=== PATIENT | female | born 1970 | race Caucasian/White ===

== ENCOUNTER 2016-07-23 14:11 | Inpatient (IN) | payer BC ==
[~2016-07-23] VITALS: Ht 172.7 cm; Wt 86.2 kg
--- NOTE | 2016-07-23 15:11 | Emergency Room Report ---
History of Present Illness General Chief Complaint: General Complaint Source: Patient Present Illness HPI Patient presents with pain in her groin and axillary area. She has hydradenitis. These lesions have been draining and bleeding on occasion. They' re fairly painful (3/10 - burning, constant) at this time but she hasn't taken any medication for them (aside from tumeric capsule this AM). She denies any fevers, chills, cough, sore throat, chest pain, nausea, vomiting , diarrhea. Her last period was normal for her and she is not . She's never had surgery in the past. She believes her tetanus is greater than 10 years however she is refusing a tetanus shot at this time. Allergies: Coded Allergies: No Known Allergies (Unverified , 07/23/16) Patient History Past Medical History: see triage record Social History: Denies: smoking Social History Narrative from [place] Last Menstrual Period: n/a hysterectomy Reviewed Nursing Documentation: PMH: Agreed, PSxH: Agreed Nursing Documentation-PMH Past Medical History: No History, Except For Review of Systems All Other Systems: negative except mentioned in HPI Physical Exam Vital Signs Date Time Temp Pulse Resp B/P Pulse Ox O2 Delivery O2 Flow Rate FiO2 07/23/16 14:34 98.2 60 16 122/72 Room Air Sp02 EP Interpretation: reviewed, normal General Appearance: well appearing, no apparent distress, GCS 15 Head: normocephalic Eyes: bilateral eye PERRL, bilateral eye normal inspection ENT: moist mucus membranes Neck: supple Respiratory: lungs clear, normal breath sounds Cardiovascular #1: regular rate, rhythm Cardiovascular #2: 2+ radial (R) Gastrointestinal: normal inspection, normal bowel sounds, non tender, no mass, non-distended Musculoskeletal: back normal, gait/station normal, normal range of motion Neurologic: alert, oriented x3, grossly normal Psychiatric: mood/affect normal Skin: warm/dry, other - Lesions L armpit and L groin - later with minimal drainage, some erythema Lymphatic: adenopathy - groin and axilla Medical Decision Making Diagnostic Impression: Primary Impression: Hydradenitis Additional Impression: Abscess ER Course Patient presents with painful lesions in the armpit and groin area. History of hidradenitis. Differential includes cellulitis, abscess he is an hidradenitis with exacerbation. Evaluation is undertaken with labs, EKG and chest x-ray as the patient needs surgical treatment at this time. The patient's declining analgesia at the moment although was offered and also refuses to have a tetanus shot. The patient is to be admitted to the hospital. Labs and EKG unremarkable. CXR clear. Still declines pain medicine. Admit med Dr. Wooten. Laboratory Tests Test 07/23/16 15:05 07/23/16 15:20 Urine Color Pale yellow Urine Appearance Clear Urine pH 6 (4.5-8.0) Urine Specific [place] 1.015 (1.005-1.035) Urine Protein Negative (NEGATIVE) Urine Glucose (UA) Negative (NEGATIVE) Urine Ketones Negative (NEGATIVE) Urine Occult Blood Negative (NEGATIVE) Urine Nitrite Negative (NEGATIVE) Urine Bilirubin Negative (NEGATIVE) Urine Urobilinogen Normal MG/DL (0.0-1.0) Urine Leukocyte Esterase Negative (NEGATIVE) Urine HCG, Qualitative Negative White Blood Count 8.6 K/UL (4.8-10.8) Red Blood Count 4.99 M/UL (4.20-5.40) Hemoglobin 15.0 G/DL (12.0-16.0) Hematocrit 44.0 % (37.0-47.0) Mean Corpuscular Volume 88 FL (80-99) Mean Corpuscular Hemoglobin 30.0 PG (27.0-31.0) Mean Corpuscular Hemoglobin Concent 34.0 G/DL (32.0-36.0) Red Cell Distribution Width 11.8 % (11.6-14.8) Platelet Count 294 K/UL (150-450) Mean Platelet Volume 6.6 FL (6.5-10.1) Neutrophils (%) (Auto) 40.6 % (45.0-75.0) L Lymphocytes (%) (Auto) 49.8 % (20.0-45.0) H Monocytes (%) (Auto) 6.7 % (1.0-10.0) Eosinophils (%) (Auto) 1.8 % (0.0-3.0) Basophils (%) (Auto) 1.1 % (0.0-2.0) Prothrombin Time 10.2 SEC (9.30-11.50) Prothrombin Time INR 1.0 (0.9-1.1) PTT 28 SEC (23-33) Sodium Level 141 mEQ/L (135-145) Potassium Level 4.0 mEQ/L (3.4-4.9) Chloride Level 100 mEQ/L (98-107) Carbon Dioxide Level 24 mEQ/L (20-30) Anion Gap 17 (5-15) H Blood Urea Nitrogen 16 mg/dL (7-23) Creatinine 1.0 mg/dL (0.5-0.9) H Estimate Glomerular Filtration Rate > 60 mL/min (>60) Glucose Level 99 mg/dL (74-106) Calcium Level 9.7 mg/dL (8.6-10.2) Total Bilirubin 0.4 mg/dL (0.0-1.2) Aspartate Amino Transferase (AST) 15 U/L (5-40) Alanine Aminotransferase (ALT) 15 U/L (3-33) Alkaline Phosphatase 79 U/L (35-104) Total Creatine Kinase 71 U/L (26-140) Total Protein 7.6 g/dL (6.6-8.7) Albumin 4.8 g/dL (3.5-5.2) Globulin 2.8 g/dL Albumin/Globulin Ratio 1.7 (1.0-2.7) EKG Diagnostic Results Rate: normal Rhythm: NSR ST Segments: no acute changes Rhythm Strip Diag. Results EP Interpretation: yes Rhythm: NSR, no PVC's, no ectopy Chest X-Ray Diagnostic Results EP Interpretation: Yes Findings: no consolidation, no effusion, no pneumothorax, no acute cardiopulmonary disease Number of Views: 1 Last Vital Signs Date Time Temp Pulse Resp B/P Pulse Ox O2 Delivery O2 Flow Rate FiO2 07/24/16 00:00 97.2 69 20 89/51 96 Room Air Status: improved Disposition: ADMITTED INPATIENT Condition: Serious Leroy Foss M.D. Jul 23, 2016 15:11
[2016-07-23 15:28] VITALS: BP 122/72
[2016-07-23 15:36] LABS: BASOPHILS % (AUTO) 1.1 % (0.0-2.0); EOSINOPHILS % (AUTO) 1.8 % (0.0-3.0); LYMPHOCYTES % (AUTO) 49.8 % (20.0-45.0); MEAN CORPUSCULAR VOLUME 88 FL (80-99); MEAN PLATELET VOLUME 6.6 FL (6.5-10.1); MONOCYTES % (AUTO) 6.7 % (1.0-10.0); NEUTROPHILS % (AUTO) 40.6 % (45.0-75.0); PLATELET COUNT 294 K/UL (150-450); RED BLOOD COUNT 4.99 M/UL (4.20-5.40); RED CELL DISTRIBUTION WIDTH 11.8 % (11.6-14.8); WHITE BLOOD COUNT 8.6 K/UL (4.8-10.8)
[2016-07-23 15:38] LABS: APPEARANCE,URINE CLEAR; KETONES,URINE NEGATIVE (NEGATIVE); LEUKOCYTE ESTERASE ,URINE NEGATIVE (NEGATIVE); NITRITE,URINE NEGATIVE (NEGATIVE); PH,URINE 6 (4.5-8.0); PROTEIN,URINE NEGATIVE (NEGATIVE); UROBILINOGEN,URINE NORMAL MG/DL (0.0-1.0)
[2016-07-23 15:52] LABS: PROTHROMBIN TIME 10.2 SEC (9.30-11.50)
[2016-07-23 15:56] LABS: ALANINE AMINOTRANSFERASE 15 U/L (3-33); ALBUMIN/GLOBULIN RATIO 1.7 (1.0-2.7); ANION GAP 17 (5-15); ASPARTATE AMINO TRANSFERASE 15 U/L (5-40); CALCIUM 9.7 mg/dL (8.6-10.2); CARBON DIOXIDE 24 mEQ/L (20-30); CHLORIDE 100 mEQ/L (98-107); GLOMERULAR FILTRATION RATE > 60 mL/min (>60); HEMOLYSIS 9; SODIUM 141 mEQ/L (135-145); TOTAL PROTEIN 7.6 g/dL (6.6-8.7)
--- NOTE | 2016-07-23 16:07 | Diagnostic Imaging Report ---
Indication: Chest pain Technique: One view of the chest Comparison: none Findings: Lungs and pleural spaces are clear. Heart size is normal. Impression: No acute process
--- NOTE | 2016-07-23 17:06 | History and Physical ---
History of Present Illness General Date patient seen: Jul 23, 2016 Time patient seen: 17:04 Reason for Hospitalization: General Complaint Present Illness HPI 46 yo F presents with pain in her groin and axillary area. She has a h/o hydradenitis. These lesions have been draining and bleeding on occasion. They are fairly painful. She denies any fevers, chills, cough, sore throat, chest pain, nausea, vomiting , diarrhea. Her last period was normal for her and she is not . She's never had surgery in the past. Allergies: Coded Allergies: No Known Allergies (Unverified , 07/23/16) Patient History Healthcare decision maker Resuscitation status Advanced Directive on File Past Medical/Surgical History Past Medical/Surgical History: (1) Hydradenitis Family History Family History: Patient reports no known family medical history. Social History Social History: (1) No significant social history Review of Systems All Other Systems: negative except mentioned in HPI Physical Exam General Appearance: no apparent distress, alert HEENT: normocephalic, atraumatic, anicteric, mucous membranes moist, PERRL, EOMI, pharynx normal, no JVD Neck: non-tender, supple Respiratory/Chest: lungs clear, normal breath sounds, no respiratory distress, no accessory muscle use Cardiovascular/Chest: normal peripheral pulses, normal rate, regular rhythm Abdomen: normal bowel sounds, non tender, soft, no mass Extremities: non-tender, normal inspection Skin Exam: warm/dry Neurologic: hand flesher II-XII grossly normal, no motor/sensory deficits, alert Musculoskeletal: normal muscle bulk Physical Exam Narrative General Appearance: well appearing, no apparent distress, GCS 15 Head: normocephalic Eyes: bilateral eye PERRL, bilateral eye normal inspection ENT: moist mucus membranes Neck: supple Respiratory: lungs clear, normal breath sounds Cardiovascular #1: regular rate, rhythm Cardiovascular #2: 2+ radial (R) Gastrointestinal: normal inspection, normal bowel sounds, non tender, no mass, non-distended Musculoskeletal: back normal, gait/station normal, normal range of motion Neurologic: alert, oriented x3, grossly normal Psychiatric: mood/affect normal Skin: warm/dry, other - Lesions L armpit and L groin - later with minimal drainage, some erythema Lymphatic: adenopathy - groin and axilla Last 24 Hour Vital Signs Date Time Temp Pulse Resp B/P Pulse Ox O2 Delivery O2 Flow Rate FiO2 07/23/16 15:28 98.2 75 16 122/72 98 Room Air 07/23/16 14:34 98.2 60 16 122/72 Room Air Laboratory Tests Test 07/23/16 15:05 07/23/16 15:20 Urine Color Pale yellow Urine Appearance Clear Urine pH 6 (4.5-8.0) Urine Specific [place] 1.015 (1.005-1.035) Urine Protein Negative (NEGATIVE) Urine Glucose (UA) Negative (NEGATIVE) Urine Ketones Negative (NEGATIVE) Urine Occult Blood Negative (NEGATIVE) Urine Nitrite Negative (NEGATIVE) Urine Bilirubin Negative (NEGATIVE) Urine Urobilinogen Normal MG/DL (0.0-1.0) Urine Leukocyte Esterase Negative (NEGATIVE) Urine HCG, Qualitative Negative White Blood Count 8.6 K/UL (4.8-10.8) Red Blood Count 4.99 M/UL (4.20-5.40) Hemoglobin 15.0 G/DL (12.0-16.0) Hematocrit 44.0 % (37.0-47.0) Mean Corpuscular Volume 88 FL (80-99) Mean Corpuscular Hemoglobin 30.0 PG (27.0-31.0) Mean Corpuscular Hemoglobin Concent 34.0 G/DL (32.0-36.0) Red Cell Distribution Width 11.8 % (11.6-14.8) Platelet Count 294 K/UL (150-450) Mean Platelet Volume 6.6 FL (6.5-10.1) Neutrophils (%) (Auto) 40.6 % (45.0-75.0) L Lymphocytes (%) (Auto) 49.8 % (20.0-45.0) H Monocytes (%) (Auto) 6.7 % (1.0-10.0) Eosinophils (%) (Auto) 1.8 % (0.0-3.0) Basophils (%) (Auto) 1.1 % (0.0-2.0) Prothrombin Time 10.2 SEC (9.30-11.50) Prothromb Time International Ratio 1.0 (0.9-1.1) Activated Partial Thromboplast Time 28 SEC (23-33) Sodium Level 141 mEQ/L (135-145) Potassium Level 4.0 mEQ/L (3.4-4.9) Chloride Level 100 mEQ/L (98-107) Carbon Dioxide Level 24 mEQ/L (20-30) Anion Gap 17 (5-15) H Blood Urea Nitrogen 16 mg/dL (7-23) Creatinine 1.0 mg/dL (0.5-0.9) H Estimat Glomerular Filtration Rate > 60 mL/min (>60) Glucose Level 99 mg/dL (74-106) Calcium Level 9.7 mg/dL (8.6-10.2) Total Bilirubin 0.4 mg/dL (0.0-1.2) Aspartate Amino Transf (AST/SGOT) 15 U/L (5-40) Alanine Aminotransferase (ALT/SGPT) 15 U/L (3-33) Alkaline Phosphatase 79 U/L (35-104) Total Creatine Kinase 71 U/L (26-140) Total Protein 7.6 g/dL (6.6-8.7) Albumin 4.8 g/dL (3.5-5.2) Globulin 2.8 g/dL Albumin/Globulin Ratio 1.7 (1.0-2.7) Height (Feet): 5 Height (Inches): 8.00 Weight (Pounds): 190 Medications Current Medications Medications (Trade) Dose Ordered Sig/[place] Route PRN Reason Start Time Stop Time Status Last Admin Dose Admin Sodium Chloride (Sodium Chloride 1000ml bag) 1,000 ml @ 150 mls/hr Q6H40M IV 07/23/16 14:45 08/22/16 14:44 07/23/16 15:25 Assessment/Plan Problem List: (1) Abscess ICD Codes: L02.91 - Cutaneous abscess, unspecified SNOMED: 398673514 (2) Hydradenitis ICD Codes: L73.2 - Hidradenitis suppurativa SNOMED: 68099822 Status: progressing Assessment/Plan - Admit to inpt - Pain control - Blood cx - Start IV abx -IVF - Supp care/wound care -c/s surgery, Dr. Bradshaw If patient is required to have surgery, based on the patient's medical history, and other available ancillary data, the patient is a LOW risk for an INTERMEDIATE risk procedure. Per the most recent ACC/AHA guidelines, the patient does not need any further cardiopulmonary testing prior to the procedure and there do not appear to be any clear medical contraindications to proceeding with the proposed procedure. DVT ppx: SCD Raf Vargas M.D. Jul 23, 2016 17:06
[2016-07-23 18:03] VITALS: BP 125/70
[2016-07-23 19:00] VITALS: BP 109/64
[2016-07-23] MEDS ORDERED: NKM (19:16)
[2016-07-23] MEDS: D5 1/2NS 1,000 ML IV SCH (20:00)
[2016-07-23] MEDS: ceFAZolin 1gm in D5W 55ml IVPB SCH (21:59)
[2016-07-23] MEDS ORDERED: ceFAZolin 1gm/50ml Premix 50 ML IVPB SCH (23:00)
[2016-07-24] VITALS (14 sets, daily range): BP systolic 89–151; BP diastolic 51–80
[2016-07-24] MEDS: ceFAZolin 1gm in D5W 55ml IVPB SCH (05:18)
[2016-07-24] MEDS: D5 1/2NS 1,000 ML IV SCH ×2 (08:27→22:40)
--- NOTE | 2016-07-24 11:48 | Pre-Procedure Note/Attestation ---
Pre-Procedure Note/Attestation Complete Prior to Procedure Planned Procedure: bilateral Procedure Narrative: Debridement of bilateral groins and left axilla with flap elevation Attestation I attest that I discussed the nature of the procedure; its benefits; risks and complications; and alternatives (and the risks and benefits of such alternatives ), prior to the procedure, with the patient (or the patient's legal site safety representative). I attest that, if there was a reasonable possibility of needing a blood transfusion, the patient (or the patient's legal site safety representative) was given the [facility] standardized written summary, pursuant to the John [place] Blood Safety Act ([place] Health and Safety Code # 1645, as amended). I attest that I re-evaluated the patient just prior to the surgery and that there has been no change in the patient's H&P, except as documented below: SOHA ELLIOTT Jul 24, 2016 11:48
--- NOTE | 2016-07-24 11:49 | Operative Note - PDOC ---
Operative Note Operative Note Pre-op Diagnosis: Bilateral groin abscess with left axillary infection Procedure: Debridement of bilateral groin and left axilla with flap elevation/ reconstruction Surgeon: Augustine Software Deployment Engineer: Sergio Anesthesia: general Specimen: yes Condition: stable Estimated Blood Loss: minimal Drains: DELICIA Implant(s) used?: No SOHA ELLIOTT Jul 24, 2016 11:49
[2016-07-24] MEDS ORDERED: DiphenhydrAMINE 50mg/ml Inj IVP PRN ×3 (12:00→16:00)
[2016-07-24] MEDS ORDERED: Zolpidem 5mg tab ORAL PRN (12:00)
[2016-07-24] MEDS ORDERED: Rate Change PCA 1 Each MISC PRN (12:00)
[2016-07-24] MEDS ORDERED: Propofol 10mg/ml 20ml IV ONE (12:36)
[2016-07-24] MEDS ORDERED: Bacitracin 50000 Units Vial ONE (12:36)
[2016-07-24] MEDS ORDERED: Lidocaine 1% 10mg/ml/Epi 0.005mg/ml 30ml vial INJ ONE (12:36)
[2016-07-24] MEDS ORDERED: NS Irrig 1000ml IRRIG ONE (12:50)
--- NOTE | 2016-07-24 12:57 | Consultation ---
DATE OF CONSULTATION: 07/24/2016 CONSULTING PHYSICIAN: Kelsey Bradshaw M.D. REASON FOR THE CONSULTATION: Bilateral groin pain and drainage. HISTORY OF PRESENT ILLNESS: This is a 46-year-old female, who presented to the emergency room for bilateral pain in her groins with drainage and tenderness. She was seen and admitted and started on IV antibiotics and was noted to have areas within her groin that were consistent with abscesses that needed to be addressed with both medical management as well surgical management. PAST MEDICAL HISTORY: Significant for hiatal hernia. PAST SURGICAL HISTORY: Includes a hysterectomy. PHYSICAL EXAMINATION: GENERAL: The patient is alert and oriented. HEART EXAM: Regular rhythm. ABDOMEN: Soft, nontender, and nondistended. CHEST: Examination of the chest reveals a mild area of hidradenitis in the left axilla. In the groin, there is as areas of multiple abscesses throughout the both groins extending from the upper to lower groin adjacent to the vulva on both sides. ASSESSMENT AND PLAN: This is a 46-year-old female admitted for bilateral groin abscesses. She will be taken to the operating room today for bilateral groin debridement with flap elevation. She will also undergo left axillary excision of hidradenitis with flap reconstruction. Kelsey Bradshaw M.D. DR: SHAHID JOB#: [id number] CC:
[2016-07-24] MEDS ORDERED: LR 1000ml 1,000 ML IVLG SCH (13:40)
--- NOTE | 2016-07-24 13:40 | Anethesia Preoperative Eval ---
Anesthesia Pre-op PMH/ROS General Date of Evaluation: Jul 24, 2016 Time of Evaluation: 12:38 Anesthesiologist: Jeb ASA Score: ASA 2 Mallampati Score Class I : Soft palate, uvula, fauces, pillars visible Class II: Soft palate, uvula, fauces visible Class III: Soft palate, base of uvula visible Class IV: Only hard plate visible Mallampati Classification: Class II Surgeon: Augustine Diagnosis: Bilateral groin and L axillary hydradenitis Surgical Procedure: Excision of hydradenitis Anesthesia History: none Social History: smoking - h/o Family History: no anesthesia problems Allergies: Coded Allergies: No Known Allergies (Unverified , 07/23/16) Past Medical History Cardiovascular: Denies: CAD, HTN, AR, arrhythmia, other, valve dz Pulmonary: Denies: COPD, MARIA ELENA, asthma, other Gastrointestinal/Genitourinary: Reports: GERD - mild, Denies: CRI, ESRD, other Neurologic/Psychiatric: Denies: CVA, TIA, dementia, depression/anxiety, other Endocrine: Denies: DM, hypothyroidism, other, steroids HEENT: Denies: RED DEVIL (L), [place] (R), cataract (L), cataract (R), glaucoma, other Musculoskeletal/Integumentary: Denies: DDD, DJD, OA, RA, edema, other Other: other - overweight PMH Narrative: as above PSxH Narrative: Hysterectomy Hip arthroscopy Anesthesia Pre-op Phys. Exam Physician Exam Last Vital Signs Date Time Temp Pulse Resp B/P Pulse Ox O2 Delivery O2 Flow Rate FiO2 07/24/16 05:24 97.5 62 20 101/67 99 Room Air Constitutional: NAD Neurologic: CN 2-12 intact Cardiovascular: RRR, no M/R/G Respiratory: CTA Gastrointestinal: S/NT/ND Airway Exam Mallampati Score: Class II MO: full Neck: flexible ROM: full Teeth: intact Dentures: no lower, no upper Anesthesia Pre-op A/P Labs Hematology Test 07/23/16 15:20 White Blood Count 8.6 K/UL (4.8-10.8) Red Blood Count 4.99 M/UL (4.20-5.40) Hemoglobin 15.0 G/DL (12.0-16.0) Hematocrit 44.0 % (37.0-47.0) Mean Corpuscular Volume 88 FL (80-99) Mean Corpuscular Hemoglobin 30.0 PG (27.0-31.0) Mean Corpuscular Hemoglobin Concent 34.0 G/DL (32.0-36.0) Red Cell Distribution Width 11.8 % (11.6-14.8) Platelet Count 294 K/UL (150-450) Mean Platelet Volume 6.6 FL (6.5-10.1) Neutrophils (%) (Auto) 40.6 % (45.0-75.0) L Lymphocytes (%) (Auto) 49.8 % (20.0-45.0) H Monocytes (%) (Auto) 6.7 % (1.0-10.0) Eosinophils (%) (Auto) 1.8 % (0.0-3.0) Basophils (%) (Auto) 1.1 % (0.0-2.0) Coagulation Test 07/23/16 15:20 Prothrombin Time 10.2 SEC (9.30-11.50) Prothromb Time International Ratio 1.0 (0.9-1.1) Activated Partial Thromboplast Time 28 SEC (23-33) Chemistry Test 07/23/16 15:20 Sodium Level 141 mEQ/L (135-145) Potassium Level 4.0 mEQ/L (3.4-4.9) Chloride Level 100 mEQ/L (98-107) Carbon Dioxide Level 24 mEQ/L (20-30) Anion Gap 17 (5-15) H Blood Urea Nitrogen 16 mg/dL (7-23) Creatinine 1.0 mg/dL (0.5-0.9) H Estimat Glomerular Filtration Rate > 60 mL/min (>60) Glucose Level 99 mg/dL (74-106) Calcium Level 9.7 mg/dL (8.6-10.2) Total Bilirubin 0.4 mg/dL (0.0-1.2) Aspartate Amino Transf (AST/SGOT) 15 U/L (5-40) Alanine Aminotransferase (ALT/SGPT) 15 U/L (3-33) Alkaline Phosphatase 79 U/L (35-104) Total Creatine Kinase 71 U/L (26-140) Total Protein 7.6 g/dL (6.6-8.7) Albumin 4.8 g/dL (3.5-5.2) Globulin 2.8 g/dL Albumin/Globulin Ratio 1.7 (1.0-2.7) Urine Test Test 07/23/16 15:05 Urine HCG, Qualitative Negative Studies Pre-op Studies: EKG - NSR Risk Assessment & Plan Assessment: ASA 2 Plan: GA with Ett PONV prevention Status Change Before Surgery: No Pre-Antibiotics Drug: Ancef 2gr. Given Within 1 Hr of Incision: Yes Time Given: 13:20 CHEL BORGES M.D. Jul 24, 2016 13:40
[2016-07-24] MEDS ORDERED: Meperidine 25mg/ml Inj IV PRN ×2 (13:45→16:00)
[2016-07-24] MEDS ORDERED: Midazolam 2mg/2ml Inj IVP PRN ×2 (13:45→16:00)
[2016-07-24] MEDS ORDERED: Metoclopramide 10mg/2ml Inj IVP PRN ×2 (13:45→16:00)
[2016-07-24] MEDS ORDERED: Ketorolac 30mg Inj IV PRN (13:45)
[2016-07-24] MEDS ORDERED: Hydromorphone 0.5mg/0.5ml inj IVP PRN ×2 (13:45→16:00)
[2016-07-24] MEDS ORDERED: ceFAZolin sod 1 GM in D5W 55 ML IVPB SCH (14:00)
--- NOTE | 2016-07-24 14:12 | General Progress Note ---
Assessment/Plan Problem List: (1) Abscess ICD Codes: L02.91 - Cutaneous abscess, unspecified SNOMED: [id number] (2) Hydradenitis ICD Codes: L73.2 - Hidradenitis suppurativa SNOMED: 09201424 Status: progressing Assessment/Plan - Admit to inpt med/surg - Pain control - Blood cx - IV abx -IVF - Supp care/wound care -c/s surgery, Dr. Bradshaw; pt to undergo b/l groin and L axilla debridement Subjective Date patient seen: Jul 24, 2016 Time patient seen: 14:12 Allergies: Coded Allergies: No Known Allergies (Unverified , 07/23/16) Subjective no acute events o/n Objective Last 24 Hour Vital Signs Date Time Temp Pulse Resp B/P Pulse Ox O2 Delivery O2 Flow Rate FiO2 07/24/16 05:24 97.5 62 20 101/67 99 Room Air 07/24/16 00:00 97.2 69 20 89/51 96 Room Air 07/23/16 19:00 97.9 70 20 109/64 96 Room Air 07/23/16 18:35 98.0 70 18 125/70 99 Room Air 07/23/16 18:03 98.0 70 18 125/70 99 Room Air 07/23/16 15:28 98.2 75 16 122/72 98 Room Air 07/23/16 14:34 98.2 60 16 122/72 Room Air Intake and Output 07/23/16 07/24/16 19:00 07:00 Intake Total 350 ml 120 ml Balance 350 ml 120 ml Intake Oral 120 ml IV Total 350 ml # Voids 1 6 Laboratory Tests 07/23/16 15:05: Urine Color Pale yellow, Urine Appearance Clear, Urine pH 6, Urine Specific [place] 1.015, Urine Protein Negative, Urine Glucose (UA) Negative, Urine Ketones Negative, Urine Occult Blood Negative, Urine Nitrite Negative, Urine Bilirubin Negative, Urine Urobilinogen Normal, Urine Leukocyte Esterase Negative , Urine HCG, Qualitative Negative 07/23/16 15:20: White Blood Count 8.6, Red Blood Count 4.99, Hemoglobin 15.0, Hematocrit 44.0, Mean Corpuscular Volume 88, Mean Corpuscular Hemoglobin 30.0, Mean Corpuscular Hemoglobin Concent 34.0, Red Cell Distribution Width 11.8, Platelet Count 294, Mean Platelet Volume 6.6, Neutrophils (%) (Auto) 40.6L, Lymphocytes (%) (Auto) 49.8H, Monocytes (%) (Auto) 6.7, Eosinophils (%) (Auto) 1.8, Basophils (%) (Auto ) 1.1, Prothrombin Time 10.2, Prothromb Time International Ratio 1.0, Activated Partial Thromboplast Time 28, Sodium Level 141, Potassium Level 4.0, Chloride Level 100, Carbon Dioxide Level 24, Anion Gap 17H, Blood Urea Nitrogen 16, Creatinine 1.0H, Estimat Glomerular Filtration Rate > 60, Glucose Level 99, Calcium Level 9.7, Total Bilirubin 0.4, Aspartate Amino Transf (AST/SGOT) 15, Alanine Aminotransferase (ALT/SGPT) 15, Alkaline Phosphatase 79, Total Creatine Kinase 71, Total Protein 7.6, Albumin 4.8, Globulin 2.8, Albumin/Globulin Ratio 1.7 Height (Feet): 5 Height (Inches): 8.00 Weight (Pounds): 190 Objective General Appearance: well appearing, no apparent distress Head: normocephalic Eyes: bilateral eye PERRL, bilateral eye normal inspection ENT: moist mucus membranes Neck: supple Respiratory: lungs clear, normal breath sounds Cardiovascular #1: regular rate, rhythm Cardiovascular #2: 2+ radial (R) Gastrointestinal: normal inspection, normal bowel sounds, non tender, no mass, non-distended Musculoskeletal: back normal, gait/station normal, normal range of motion Neurologic: alert, oriented x3, grossly normal Psychiatric: mood/affect normal Skin: warm/dry, other - Lesions L armpit and L groin - later with minimal drainage, some erythema Lymphatic: adenopathy - groin and axilla Raf Vargas M.D. Jul 24, 2016 14:12
--- NOTE | 2016-07-24 15:10 | Immediate Post-Op Evaluation ---
Immediate Post-Op Evalulation Immediate Post-Op Evalulation Procedure: Excision of bilateral groin and l axillary hydradenitis Date of Evaluation: Jul 24, 2016 Time of Evaluation: 15:08 IV Fluids: 1000 Blood Products: none Estimated Blood Loss: <50 Urinary Output: 250 Blood Pressure Systolic: 135 Blood Pressure Diastolic: 56 Pulse Rate: 72 Respiratory Rate: 20 O2 Sat by Pulse Oximetry: 99 Temperature (Fahrenheit): 97.6 Pain Score (1-10): 2 Nausea: No Vomiting: No Complications none Patient Status: reacts, patent, extubated, none Hydration Status: adequate CHEL BORGES M.D. Jul 24, 2016 15:10
--- NOTE | 2016-07-24 15:57 | 48 Hour Post Anesthesia Eval ---
Post Anesthesia Evaluation Procedure: Excision of bilateral groin and l axillary hydradenitis Date of Evaluation: Jul 24, 2016 Time of Evaluation: 15:56 Blood Pressure Systolic: 116 0: 58 Pulse Rate: 74 Respiratory Rate: 20 Temperature (Fahrenheit): 97.2 O2 Sat by Pulse Oximetry: 99 Airway: patent Nausea: No Vomiting: No Pain Intensity: 2 Hydration Status: adequate Cardiopulmonary Status: stable Mental Status/LOC: patient returned to baseline Follow-up Care/Observations: n/a Post-Anesthesia Complications: none Follow-up care needed: N/A CHEL BORGES M.D. Jul 24, 2016 15:57
[2016-07-24] MEDS: PCA HYDROmorphone 1mg/ml 30 ML IV PRN (16:23)
[2016-07-24] MEDS: PCA shift volume MISC SCH ×2 (18:30→23:00)
--- NOTE | 2016-07-24 20:47 | Operative Note - Dictated ---
DATE OF OPERATION: 07/24/2016 PREOPERATIVE DIAGNOSES: 1. Bilateral groin abscesses. 2. Left axillary infection. 3. Right thigh abscess. POSTOPERATIVE DIAGNOSES: 1. Bilateral groin abscesses. 2. Left axillary infection. 3. Right thigh abscess. PROCEDURE: 1. Left axillary debridement. 2. Elevation of a superior fasciocutaneous flap for closure of left axillary wound. 3. Elevation of an inferior fasciocutaneous flap for closure of left axillary wound. 4. Debridement of bilateral groin. 5. Debridement of right thigh abscess. 6. Elevation of a fasciocutaneous medial thigh flap for staged closure of right thigh wound. 7. Elevation of a fasciocutaneous groin flap for staged closure of right thigh wound. 8. Elevation of a fasciocutaneous medial thigh flap for staged closure of left groin wound. 9. Elevation of a fasciocutaneous groin flap for staged closure of left groin wound. SURGEON: Kelsey Bradshaw M.D. FACETOR: Maximus Hill M.D. ANESTHESIA: General. COMPLICATIONS: None. DRAINS: None. DISPOSITION: Stable to the recovery room. INDICATIONS FOR SURGERY: This is a 46-year-old female, admitted to the emergency room for bilateral groin abscesses. She was started on IV antibiotics, and on my evaluation of the patient, I felt that she would be appropriate candidate for debridement of her bilateral groins with stage reconstruction meaning that the flaps would not be closed at the time of the first surgery, given level of infection thought was that the patient would be on IV antibiotics and get some local wound care for two to three days before definitive closure of the wounds and regarding the left axillary area, she was a candidate for simultaneous excision and reconstruction, given the fact that the level of infection was quite low and would benefit from the debridement and irrigation intraoperatively. She understood the risks and benefits of surgery and agreed to proceed. DETAILS OF THE OPERATION: The patient was brought to the operating room and laid supine on the operating table. Her left axilla was first prepped and draped in a sterile and usual fashion. We began by using a marking pen to delineate the area of the disease and the corresponding fasciocutaneous flaps superiorly and inferiorly were designed to allow for definitive closure of the wounds . Wer began next with the use of a #15 blade to make a skin incision to excise the left axillary tissue all the way down to the axillary fascia. Once this was done, the superior inferior fasciocutaneous flaps that were designed were cut at the skin level using a #15 blade. We first elevated the inferior fasciocutaneous flap, which is based off of perforators of the intercostal arteries of the chest wall and the superior fasciocutaneous flap was then elevated at the fasciocutaneous level with perforators off of the axillary artery perfusing this flap. Once this was done, the wound was copiously irrigated and the flaps were brought together and inset using #0 and 2-0 Vicryl sutures and the skin was then closed with jose. We then turned our attention to the bilateral groin and thigh region. The patient was prepped and draped in the lithotomy position. Once the markings were made, we first began on the left side by using a #10 blade to make the skin incision elliptically to excise all the infected tissue all the way down to the level of the adductor fascia. Once this was done, we then turned our attention to the contralateral groin wound. In a similar fashion, an elliptical incision was made down to the fascia and there was also an upper thigh lesion on the left side, which was excised as well using a #10 blade to excise the abscess down to the level of the fascia. Once this was done, all the wounds were copiously irrigated with pulse lavage and we noted that even though the patient would not be amenable for definitive closure at this time and her wounds were not amenable to primary closure to begin with, given the size of the defect. As such, flaps had to be elevated to allow for staged closure. We first began the left side by elevating a medial fasciocutaneous thigh flap with proximal distal incision made to fully mobilize the flap and this was based off of branches of the superficial femoral artery. The corresponding and opposing groin fasciocutaneous flap was elevated based off of perforators of the superficial inferior epigastric artery and once this was done, proximal and distal incisions were made to fully mobilize this flap as well and following this, on the contralateral thigh, we elevated similar medial thigh fasciocutaneous flap with proximal and distal incisions made to also fully mobilize the flap and this was again based off of perforators of the superficial femoral artery and similarly a groin flap based off of the perforators of the superficial inferior epigastric artery and was also elevated at the fasciocutaneous level with proximal and distal incisions made also to fully mobilize the flap. Once these flaps were elevated and they were brought together and they were noted to be under no tension. However, given again the fact that the patient had infection present, these flaps were left in situ and will be brought together for definitive wound closure in three days. These wounds were then partially closed with jose and packing was placed. The patient tolerated the procedure well. There were no complications. Kelsey Bradshaw M.D. DR: FADY JOB#: [id number] CC: JAYANT
[2016-07-24] MEDS: ceFAZolin sod 1 GM in D5W 55 ML IVPB SCH (21:03)
[2016-07-24] MEDS: Heparin 5000 units/ml inj SUBQ SCH (21:05)
[2016-07-25 04:00] VITALS: BP 100/66
[2016-07-25] MEDS: ceFAZolin sod 1 GM in D5W 55 ML IVPB SCH ×3 (04:06→20:41)
[2016-07-25] MEDS: PCA shift volume MISC SCH ×3 (07:00→23:00)
[2016-07-25 08:00] VITALS: BP 106/64
[2016-07-25] MEDS: Metoclopramide 10mg/2ml Inj IVP PRN ×2 (08:05→15:01)
[2016-07-25] MEDS: Heparin 5000 units/ml inj SUBQ SCH ×2 (08:06→20:48)
--- NOTE | 2016-07-25 09:50 | General Progress Note ---
Progress Note Progress Note Pt seen and examined. POD # 1 and doing well. Dressings are dry and intact. Will take down dressings in AM in the groin and to OR on Wednesday for definitive groin wound closure. MD LEXI Fuentes AMIR Jul 25, 2016 09:50
[2016-07-25 12:00] VITALS: BP 106/68
[2016-07-25] MEDS ORDERED: NS Irrig 1000ml ONE (12:45)
[2016-07-25] MEDS ORDERED: Midazolam 2mg/2ml Inj ONE (12:45)
[2016-07-25] MEDS ORDERED: Glycopyrrolate 0.2mg/ml 1ml Vial ONE (12:45)
[2016-07-25] MEDS ORDERED: Ketorolac 30mg Inj ONE (12:45)
[2016-07-25] MEDS ORDERED: Zemuron 50mg/5ml Inj IV ONE (12:45)
[2016-07-25] MEDS ORDERED: Sterile Water Irrig 1000ml IRRIG ONE (12:45)
[2016-07-25] MEDS ORDERED: LR 1000ml ONE (12:45)
[2016-07-25] MEDS ORDERED: fentaNYL 250mcg/5ml ONE (12:45)
[2016-07-25] MEDS: D5 1/2NS 1,000 ML IV SCH (13:22)
[2016-07-25] MEDS ORDERED: D5 1/2NS 1000ml IV ONE (13:34)
[2016-07-25] MEDS ORDERED: Tubing IV Secondary IV ONE (13:34)
[2016-07-25 16:00] VITALS: BP 109/71
[2016-07-25] MEDS: PCA HYDROmorphone 1mg/ml 30 ML IV PRN (16:35)
[2016-07-26] VITALS: BP 123/77
[2016-07-26] MEDS: D5 1/2NS 1,000 ML IV SCH ×3 (01:36→19:58)
[2016-07-26 04:00] VITALS: BP 125/83
[2016-07-26] MEDS: ceFAZolin sod 1 GM in D5W 55 ML IVPB SCH ×3 (05:13→20:00)
[2016-07-26] MEDS: PCA shift volume MISC SCH ×3 (07:00→23:00)
[2016-07-26] MEDS: Heparin 5000 units/ml inj SUBQ SCH ×2 (08:22→21:00)
[2016-07-26 08:30] VITALS: BP 123/85
[2016-07-26] MEDS ORDERED: Norco 5mg/325mg tab ORAL PRN (10:45)
[2016-07-26] MEDS ORDERED: Rate Change PCA 1 Each MISC PRN (11:15)
[2016-07-26] MEDS ORDERED: PCA HYDROmorphone 1mg/ml 30 ML IV PRN (11:15)
--- NOTE | 2016-07-26 12:18 | General Progress Note ---
Assessment/Plan Problem List: (1) Abscess ICD Codes: L02.91 - Cutaneous abscess, unspecified SNOMED: 114307818 (2) Hydradenitis ICD Codes: L73.2 - Hidradenitis suppurativa SNOMED: 73190753 Assessment/Plan - Admit to inpt med/surg - Pain control; start norco since pt having n/v with dilaudid -zofran, compazine and reglan prn n/v - Blood cx - IV abx -IVF - Supp care/wound care -c/s surgery, Dr. Bradshaw; pt s/p b/l groin and L axilla debridement 07/24/16 Subjective Date patient seen: Jul 25, 2016 Time patient seen: 12:16 Allergies: Coded Allergies: No Known Allergies (Unverified , 07/23/16) Subjective +n/v; no f/c; avoiding taking pain med 2/2 n/v Objective Last 24 Hour Vital Signs Date Time Temp Pulse Resp B/P Pulse Ox O2 Delivery O2 Flow Rate FiO2 07/26/16 08:23 18 07/26/16 04:00 18 07/26/16 04:00 98.4 74 19 125/83 91 Room Air 07/26/16 00:00 98.1 70 20 123/77 95 Room Air 07/26/16 00:00 18 07/25/16 20:00 18 07/25/16 17:05 98.2 07/25/16 16:40 18 07/25/16 16:00 18 07/25/16 16:00 98.0 68 18 109/71 97 Room Air Intake and Output 07/25/16 07/26/16 19:00 07:00 Intake Total 360 ml 120 ml Output Total 400 ml 2700 ml Balance -40 ml -2580 ml Intake Oral 360 ml 120 ml Output Urine Total 400 ml 2700 ml Height (Feet): 5 Height (Inches): 8.00 Weight (Pounds): 190 Objective General Appearance: well appearing, no apparent distress Head: normocephalic Eyes: bilateral eye PERRL, bilateral eye normal inspection ENT: moist mucus membranes Neck: supple Respiratory: lungs clear, normal breath sounds Cardiovascular #1: regular rate, rhythm Cardiovascular #2: 2+ radial (R) Gastrointestinal: normal inspection, normal bowel sounds, non tender, no mass, non-distended Musculoskeletal: back normal, gait/station normal, normal range of motion Neurologic: alert, oriented x3, grossly normal Psychiatric: mood/affect normal Skin: warm/dry, other - Lesions L armpit and b/L groin - incision c/d/i Raf Vargas M.D. Jul 26, 2016 12:18
--- NOTE | 2016-07-26 12:19 | General Progress Note ---
Assessment/Plan Problem List: (1) Abscess ICD Codes: L02.91 - Cutaneous abscess, unspecified SNOMED: 885274991 (2) Hydradenitis ICD Codes: L73.2 - Hidradenitis suppurativa SNOMED: 98040005 Assessment/Plan - Admit to inpt med/surg - Pain control; start norco since pt having n/v with dilaudid -zofran, compazine and reglan prn n/v - Blood cx - IV abx -IVF - Supp care/wound care -c/s surgery, Dr. Bradshaw; pt s/p b/l groin and L axilla debridement 07/24/16 plan for wound closure tomorrow Subjective Date patient seen: Jul 26, 2016 Time patient seen: 12:18 Allergies: Coded Allergies: No Known Allergies (Unverified , 07/23/16) Subjective +n/v; no f/c; avoiding taking pain med 2/2 n/v Objective Last 24 Hour Vital Signs Date Time Temp Pulse Resp B/P Pulse Ox O2 Delivery O2 Flow Rate FiO2 07/26/16 08:23 18 07/26/16 04:00 18 07/26/16 04:00 98.4 74 19 125/83 91 Room Air 07/26/16 00:00 98.1 70 20 123/77 95 Room Air 07/26/16 00:00 18 07/25/16 20:00 18 07/25/16 17:05 98.2 07/25/16 16:40 18 07/25/16 16:00 18 07/25/16 16:00 98.0 68 18 109/71 97 Room Air Intake and Output 07/25/16 07/26/16 19:00 07:00 Intake Total 360 ml 120 ml Output Total 400 ml 2700 ml Balance -40 ml -2580 ml Intake Oral 360 ml 120 ml Output Urine Total 400 ml 2700 ml Height (Feet): 5 Height (Inches): 8.00 Weight (Pounds): 190 Objective General Appearance: well appearing, no apparent distress Head: normocephalic Eyes: bilateral eye PERRL, bilateral eye normal inspection ENT: moist mucus membranes Neck: supple Respiratory: lungs clear, normal breath sounds Cardiovascular #1: regular rate, rhythm Cardiovascular #2: 2+ radial (R) Gastrointestinal: normal inspection, normal bowel sounds, non tender, no mass, non-distended Musculoskeletal: back normal, gait/station normal, normal range of motion Neurologic: alert, oriented x3, grossly normal Psychiatric: mood/affect normal Skin: warm/dry, other - Lesions L armpit and b/L groin - incision c/d/i Raf Vargas M.D. Jul 26, 2016 12:19
[2016-07-26 12:30] VITALS: BP 131/78
[2016-07-26 16:11] VITALS: BP 127/73
[2016-07-26] MEDS: Metoclopramide 10mg/2ml Inj IVP PRN (16:50)
[2016-07-26 20:39] VITALS: BP 119/54
[2016-07-27] VITALS (16 sets, daily range): BP systolic 111–141; BP diastolic 62–87
[2016-07-27] MEDS: D5 1/2NS 1,000 ML IV SCH ×4 (00:49→19:16)
[2016-07-27] MEDS: ceFAZolin sod 1 GM in D5W 55 ML IVPB SCH ×3 (04:34→20:46)
[2016-07-27] MEDS: PCA shift volume MISC SCH ×2 (07:26→23:00)
[2016-07-27] MEDS: Heparin 5000 units/ml inj SUBQ SCH ×2 (09:00→20:47)
--- NOTE | 2016-07-27 11:07 | General Progress Note ---
Assessment/Plan Problem List: (1) Abscess ICD Codes: L02.91 - Cutaneous abscess, unspecified SNOMED: 574089643 (2) Hydradenitis ICD Codes: L73.2 - Hidradenitis suppurativa SNOMED: 42845969 Assessment/Plan - Admit to inpt med/surg - Pain control; start norco since pt having n/v with dilaudid - zofran, compazine and phenargan prn n/v--now controlled - Blood cx - IV abx - incresed rate of IVF - Supp care/wound care -c/s surgery, Dr. Bradshaw; pt s/p b/l groin and L axilla debridement 07/24/16 plan for wound closure today Subjective Date patient seen: Jul 27, 2016 Time patient seen: 11:05 Allergies: Coded Allergies: No Known Allergies (Unverified , 07/23/16) Subjective n/v improved; no f/c Objective Last 24 Hour Vital Signs Date Time Temp Pulse Resp B/P Pulse Ox O2 Delivery O2 Flow Rate FiO2 07/27/16 08:00 98.4 72 19 127/82 94 Room Air 07/27/16 08:00 18 07/27/16 04:00 98.1 67 18 120/76 97 Room Air 07/27/16 04:00 18 07/27/16 00:00 18 07/27/16 00:00 97.9 69 18 113/67 97 Room Air 07/26/16 20:39 98.2 62 18 119/54 95 Room Air 07/26/16 20:00 18 07/26/16 17:15 98.1 07/26/16 16:11 98.1 72 19 127/73 96 Room Air 07/26/16 16:00 18 07/26/16 12:30 97.0 78 20 131/78 95 Room Air 07/26/16 12:00 18 Intake and Output 07/26/16 07/27/16 19:00 07:00 Intake Total 930 ml 1855 ml Output Total 2000 ml 1650 ml Balance -1070 ml 205 ml Intake Oral 480 ml IV Total 450 ml 1855 ml Output Urine Total 2000 ml 1650 ml Height (Feet): 5 Height (Inches): 8.00 Weight (Pounds): 190 Objective General Appearance: well appearing, no apparent distress Head: normocephalic Eyes: bilateral eye PERRL, bilateral eye normal inspection ENT: moist mucus membranes Neck: supple Respiratory: lungs clear, normal breath sounds Cardiovascular #1: regular rate, rhythm Cardiovascular #2: 2+ radial (R) Gastrointestinal: normal inspection, normal bowel sounds, non tender, no mass, non-distended Musculoskeletal: back normal, gait/station normal, normal range of motion Neurologic: alert, oriented x3, grossly normal Psychiatric: mood/affect normal Skin: warm/dry, other - Lesions L armpit and b/L groin - incision c/d/i Raf Vargas M.D. Jul 27, 2016 11:07
[2016-07-27 11:12] LABS: BASOPHILS % (AUTO) 1.1 % (0.0-2.0); EOSINOPHILS % (AUTO) 0.8 % (0.0-3.0); LYMPHOCYTES % (AUTO) 41.6 % (20.0-45.0); MEAN CORPUSCULAR HEMOGLOBIN 30.4 PG (27.0-31.0); MEAN CORPUSCULAR HGB CONC 34.7 G/DL (32.0-36.0); MEAN CORPUSCULAR VOLUME 88 FL (80-99); MEAN PLATELET VOLUME 6.7 FL (6.5-10.1); MONOCYTES % (AUTO) 7.2 % (1.0-10.0); NEUTROPHILS % (AUTO) 49.4 % (45.0-75.0); PLATELET COUNT 232 K/UL (150-450); RED BLOOD COUNT 4.25 M/UL (4.20-5.40); RED CELL DISTRIBUTION WIDTH 11.2 % (11.6-14.8); WHITE BLOOD COUNT 7.5 K/UL (4.8-10.8)
[2016-07-27 11:26] LABS: INR 1.1 (0.9-1.1); PROTHROMBIN TIME 11.2 SEC (9.30-11.50)
[2016-07-27 11:30] LABS: ANION GAP 11 (5-15); CARBON DIOXIDE 25 mEQ/L (20-30); CHLORIDE 105 mEQ/L (98-107); CREATININE 0.8 mg/dL (0.5-0.9); GLOMERULAR FILTRATION RATE > 60 mL/min (>60); HEMOLYSIS 2; LIPASE 16 U/L (< 60); SODIUM 141 mEQ/L (135-145)
--- NOTE | 2016-07-27 12:48 | GI Initial Consult Note ---
History of Present Illness General Date patient seen: Jul 27, 2016 Time patient seen: 10:00 Reason for Hospitalization: General Complaint Referring physician: ZHANE BLACK Reason for Consultation: N/V Present Illness HPI Patient presents with pain in her groin and axillary area. She has hydradenitis. These lesions have been draining and bleeding on occasion. They' re fairly painful (3/10 - burning, constant) at this time but she hasn't taken any medication for them (aside from tumeric capsule this AM). She denies any fevers, chills, cough, sore throat, chest pain, nausea, vomiting , diarrhea. Her last period was normal for her and she is not . She's never had surgery in the past. She believes her tetanus is greater than 10 years however she is refusing a tetanus shot at this time. GI CONSULT: HPI as noted above. GI consulted for reports of N/V x 2 days. Denies any hematemesis or coffee grounds. Denies any diarrhea. Pt stated her N /V has resolved and she does not have any symptoms at this time. The patient was given multiple antiemetics during her episodes. Pt is s/p debridement of bilateral groin abscesses. DATE OF OPERATION: 07/24/2016 PREOPERATIVE DIAGNOSES: 1. Bilateral groin abscesses. 2. Left axillary infection. 3. Right thigh abscess. POSTOPERATIVE DIAGNOSES: 1. Bilateral groin abscesses. 2. Left axillary infection. 3. Right thigh abscess. PROCEDURE: 1. Left axillary debridement. 2. Elevation of a superior fasciocutaneous flap for closure of left axillary wound. 3. Elevation of an inferior fasciocutaneous flap for closure of left axillary wound. 4. Debridement of bilateral groin. 5. Debridement of right thigh abscess. 6. Elevation of a fasciocutaneous medial thigh flap for staged closure of right thigh wound. 7. Elevation of a fasciocutaneous groin flap for staged closure of right thigh wound. 8. Elevation of a fasciocutaneous medial thigh flap for staged closure of left groin wound. 9. Elevation of a fasciocutaneous groin flap for staged closure of left groin wound. Home Meds Reported Medications No Known Medications* (NKM - No Known Medications*) ., 0 ., 0 Refills 07/23/16 Med list reviewed/reconciled: Yes Allergies: Coded Allergies: No Known Allergies (Unverified , 1/26/17) Patient History History Provided By: Patient, Medical Record PMH Narrative Past Medical History: see triage record Social History: Denies: smoking Social History Narrative from [place] Last Menstrual Period: n/a hysterectomy Reviewed Nursing Documentation: PMH: Agreed, PSxH: Agreed Review of Systems All Other Systems: negative except mentioned in HPI Physical Exam Vital Signs Date Time Temp Pulse Resp B/P Pulse Ox O2 Delivery O2 Flow Rate FiO2 07/23/16 14:34 98.2 60 16 122/72 Room Air 07/23/16 15:28 98 07/24/16 14:59 6.0 Sp02 EP Interpretation: reviewed Labs Laboratory Tests Test 07/27/16 10:50 White Blood Count 7.5 K/UL (4.8-10.8) Red Blood Count 4.25 M/UL (4.20-5.40) Hemoglobin 12.9 G/DL (12.0-16.0) Hematocrit 37.2 % (37.0-47.0) Mean Corpuscular Volume 88 FL (80-99) Mean Corpuscular Hemoglobin 30.4 PG (27.0-31.0) Mean Corpuscular Hemoglobin Concent 34.7 G/DL (32.0-36.0) Red Cell Distribution Width 11.2 % (11.6-14.8) L Platelet Count 232 K/UL (150-450) Mean Platelet Volume 6.7 FL (6.5-10.1) Neutrophils (%) (Auto) 49.4 % (45.0-75.0) Lymphocytes (%) (Auto) 41.6 % (20.0-45.0) Monocytes (%) (Auto) 7.2 % (1.0-10.0) Eosinophils (%) (Auto) 0.8 % (0.0-3.0) Basophils (%) (Auto) 1.1 % (0.0-2.0) Prothrombin Time 11.2 SEC (9.30-11.50) Prothromb Time International Ratio 1.1 (0.9-1.1) Activated Partial Thromboplast Time 27 SEC (23-33) Sodium Level 141 mEQ/L (135-145) Potassium Level 4.0 mEQ/L (3.4-4.9) Chloride Level 105 mEQ/L (98-107) Carbon Dioxide Level 25 mEQ/L (20-30) Anion Gap 11 (5-15) Blood Urea Nitrogen 5 mg/dL (7-23) L Creatinine 0.8 mg/dL (0.5-0.9) Estimat Glomerular Filtration Rate > 60 mL/min (>60) Glucose Level 113 mg/dL (74-106) H Calcium Level 9.0 mg/dL (8.6-10.2) Lipase 16 U/L (< 60) General Appearance: well appearing, no apparent distress, alert Head: normocephalic EENT: normal ENT inspection Neck: full range of motion, supple Respiratory: normal breath sounds, no respiratory distress Cardiovascular: normal rate Gastrointestinal: normal inspection, non tender, soft, normal bowel sounds Rectal: deferred Musculoskeletal: normal inspection, back normal Neurologic: normal inspection, alert, oriented x3, responsive Psychiatric: normal inspection, judgement/insight normal, memory normal Skin: normal inspection, normal color, no rash, warm/dry Lymphatic: normal inspection, no adenopathy Current Medications Current Medications Medications (Trade) Dose Ordered Sig/[place] Route PRN Reason Start Time Stop Time Status Last Admin Dose Admin Acetaminophen (Tylenol) 650 mg Q4H PRN ORAL Mild Pain (Pain Scale 1-3) 07/23/16 17:00 08/22/16 16:59 Acetaminophen (Tylenol) 650 mg Q4H PRN ORAL fever 07/23/16 17:00 08/22/16 16:59 Acetaminophen/ Hydrocodone Bitart ([place] 5/325) 1 tab Q4H PRN ORAL Moderate Pain (Pain Scale 4-6) 07/26/16 10:45 08/02/16 10:44 Cefazolin Sodium/ Dextrose (Ancef/D5W) 55 ml @ 110 mls/hr Q8HR@0500,1300,2100 IVPB 07/24/16 21:00 07/31/16 20:59 07/27/16 04:34 Dextrose (Dextrose 50%) STAT PRN IV Hypoglycemia 07/23/16 17:00 08/22/16 16:59 Dextrose/Sodium Chloride (D5 0.45% NS) 1,000 ml @ 150 mls/hr Q6H40M IV 07/26/16 17:45 08/25/16 17:44 07/27/16 06:21 Diphenhydramine HCl 12.5 mg 12.5 mg Q6H PRN IVP Itching/Pruritis 07/24/16 12:00 08/23/16 11:59 Heparin Sodium (Porcine) (Heparin 5000 units/ml) 5,000 units EVERY 12 HOURS SUBQ 07/24/16 21:00 08/23/16 20:59 07/26/16 08:22 Hydromorphone HCl (Dilaudid) 2 mg Q4H PRN IVP Moderate Pain (Pain Scale 4-6) 07/26/16 11:15 07/28/16 11:14 Hydromorphone HCl (Dilaudid) 2 mg q3h PRN SUBQ Severe Pain (Pain Scale 7-10) 07/26/16 11:15 07/28/16 11:14 Hydromorphone HCl (LIVING [employer]ILLS ADVISOR Dilaudid) 30 ml @ 0 mls/hr Q24H PRN IV For Pain 07/26/16 11:15 07/28/16 11:14 07/26/16 16:41 Miscellaneous Medication (LIVING SKILLS ADVISOR Rate Change) 1 ea DAILY PRN MISC rate change 07/26/16 11:15 07/28/16 11:14 Miscellaneous Medication 1 ea 1 ea Q8HR@07,15,23 MISC 07/26/16 15:00 07/28/16 14:59 07/27/16 07:26 Ondansetron HCl (Zofran) 4 mg Q6H PRN IVP Nausea & Vomiting 07/24/16 12:00 08/23/16 11:59 07/26/16 12:32 Prochlorperazine 10 mg 10 mg Q6H PRN IVP Nausea & Vomiting 07/26/16 12:00 08/25/16 11:59 07/26/16 13:22 Promethazine HCl (Phenergan) 25 mg Q4H PRN IV MOTION SICKNESS 07/26/16 22:45 08/25/16 22:44 07/26/16 19:57 Zolpidem Tartrate (Ambien) 5 mg DAILYPRN PRN ORAL Insomnia 07/24/16 12:00 08/23/16 11:59 GI: Plan Problems: (1) Persistent vomiting Plan symptomatic treatment at this time Phenergan or compazine prn, consider low dose reglan if patient continues to have persistent vomiting lipase negative H2 abx fu labs Discussed with Dr. Lanza. Thank you for referring this patient, we will follow. Caron Long N.P. Jul 27, 2016 12:48
--- NOTE | 2016-07-27 13:47 | Pre-Procedure Note/Attestation ---
Pre-Procedure Note/Attestation Complete Prior to Procedure Planned Procedure: bilateral Procedure Narrative: Bilateral groin closure Indications for Procedure Pre-Operative Diagnosis: Bilateral groin abscess with left axillary infection Attestation I attest that I discussed the nature of the procedure; its benefits; risks and complications; and alternatives (and the risks and benefits of such alternatives ), prior to the procedure, with the patient (or the patient's legal customer counter representative). I attest that, if there was a reasonable possibility of needing a blood transfusion, the patient (or the patient's legal customer counter representative) was given the [facility] standardized written summary, pursuant to the John Ronald Blood Safety Act ([place] Health and Safety Code # 1645, as amended). I attest that I re-evaluated the patient just prior to the surgery and that there has been no change in the patient's H&P, except as documented below: SOHA ELLIOTT Jul 27, 2016 13:47
[2016-07-27] MEDS ORDERED: fentaNYL 250mcg/5ml ONE (14:00)
[2016-07-27] MEDS ORDERED: Dexamethasone 4mg/ml vial ONE (14:00)
[2016-07-27] MEDS ORDERED: LR 1000ml ONE (14:00)
[2016-07-27] MEDS ORDERED: Midazolam 2mg/2ml Inj ONE (14:00)
[2016-07-27] MEDS ORDERED: Metoclopramide 10mg/2ml Inj ONE (14:00)
[2016-07-27] MEDS ORDERED: Propofol 10mg/ml 20ml IV ONE (14:00)
[2016-07-27] MEDS ORDERED: Lidocaine 1% MPF 10mg/ml 5ml ONE (14:00)
[2016-07-27] MEDS ORDERED: NS Irrig 1000ml ONE (14:00)
[2016-07-27] MEDS ORDERED: Sterile Water Irrig 1000ml IRRIG ONE (14:00)
[2016-07-27] MEDS ORDERED: LR 1000ml 1,000 ML IVLG SCH (14:09)
--- NOTE | 2016-07-27 14:09 | Anethesia Preoperative Eval ---
Anesthesia Pre-op PMH/ROS General Date of Evaluation: Jul 27, 2016 Anesthesiologist: Israel ASA Score: ASA 2 Mallampati Score Class I : Soft palate, uvula, fauces, pillars visible Class II: Soft palate, uvula, fauces visible Class III: Soft palate, base of uvula visible Class IV: Only hard plate visible Mallampati Classification: Class II Surgeon: Augustine Diagnosis: Bilateral groin wounds Surgical Procedure: Bilateral groin woud closure Anesthesia History: none Family History: no anesthesia problems Allergies: Coded Allergies: No Known Allergies (Unverified , 07/23/16) Medications: see eMAR Past Medical History Cardiovascular: Denies: CAD, HTN, PR, arrhythmia, other, valve dz Pulmonary: Denies: COPD, MARIA ELENA, asthma, other Gastrointestinal/Genitourinary: Reports: GERD, Denies: CRI, ESRD, other Neurologic/Psychiatric: Denies: CVA, TIA, dementia, depression/anxiety, other Endocrine: Denies: DM, hypothyroidism, other, steroids HEENT: Denies: [place] (L), [place] (R), cataract (L), cataract (R), glaucoma, other Hematology/Immune: Denies: DVT, anemia, bleeding disorder, other Musculoskeletal/Integumentary: Reports: other - HS, Denies: DDD, DJD, OA, RA, edema Other: other - overweight PSxH Narrative: LAURA, hip arthroscopy, hiddradenitis suppurativa groin I&D Anesthesia Pre-op Phys. Exam Physician Exam Last Vital Signs Date Time Temp Pulse Resp B/P Pulse Ox O2 Delivery O2 Flow Rate FiO2 07/27/16 12:06 98.2 62 19 119/62 100 Room Air 07/24/16 19:00 3.0 Constitutional: NAD Cardiovascular: RRR Respiratory: CTA Airway Exam Mallampati Score: Class II MO: full ROM: full Teeth: intact Anesthesia Pre-op A/P Labs Hematology Test 07/27/16 10:50 White Blood Count 7.5 K/UL (4.8-10.8) Red Blood Count 4.25 M/UL (4.20-5.40) Hemoglobin 12.9 G/DL (12.0-16.0) Hematocrit 37.2 % (37.0-47.0) Mean Corpuscular Volume 88 FL (80-99) Mean Corpuscular Hemoglobin 30.4 PG (27.0-31.0) Mean Corpuscular Hemoglobin Concent 34.7 G/DL (32.0-36.0) Red Cell Distribution Width 11.2 % (11.6-14.8) L Platelet Count 232 K/UL (150-450) Mean Platelet Volume 6.7 FL (6.5-10.1) Neutrophils (%) (Auto) 49.4 % (45.0-75.0) Lymphocytes (%) (Auto) 41.6 % (20.0-45.0) Monocytes (%) (Auto) 7.2 % (1.0-10.0) Eosinophils (%) (Auto) 0.8 % (0.0-3.0) Basophils (%) (Auto) 1.1 % (0.0-2.0) Coagulation Test 07/27/16 10:50 Prothrombin Time 11.2 SEC (9.30-11.50) Prothromb Time International Ratio 1.1 (0.9-1.1) Activated Partial Thromboplast Time 27 SEC (23-33) Chemistry Test 07/27/16 10:50 Sodium Level 141 mEQ/L (135-145) Potassium Level 4.0 mEQ/L (3.4-4.9) Chloride Level 105 mEQ/L (98-107) Carbon Dioxide Level 25 mEQ/L (20-30) Anion Gap 11 (5-15) Blood Urea Nitrogen 5 mg/dL (7-23) L Creatinine 0.8 mg/dL (0.5-0.9) Estimat Glomerular Filtration Rate > 60 mL/min (>60) Glucose Level 113 mg/dL (74-106) H Calcium Level 9.0 mg/dL (8.6-10.2) Lipase 16 U/L (< 60) Studies Pre-op Studies: EKG - sr Risk Assessment & Plan Assessment: ASA II Plan: GA Status Change Before Surgery: No Pre-Antibiotics Drug: Ancef 2g Given Within 1 Hr of Incision: Yes Time Given: 14:20 TAQUERIA ROMO M.D. Jul 27, 2016 14:09
[2016-07-27] MEDS ORDERED: DiphenhydrAMINE 50mg/ml Inj IVP PRN (14:15)
[2016-07-27] MEDS ORDERED: Labetalol 5mg/ml 20ml vial IV PRN (14:15)
[2016-07-27] MEDS ORDERED: Hydromorphone 0.5mg/0.5ml inj IVP PRN (14:15)
[2016-07-27] MEDS ORDERED: NS Irrig 1000ml IRRIG ONE (14:15)
[2016-07-27] MEDS ORDERED: fentaNYL 100 mcg/2 mL IV PRN (14:15)
--- NOTE | 2016-07-27 14:17 | Operative Note - PDOC ---
Operative Note Operative Note Pre-op Diagnosis: Bilateral groin abscess with left axillary infection Procedure: Closure of bilateral groin wounds Surgeon: Augustine Pulmonary Fellow: Sergio Anesthesia: general Specimen: yes Condition: stable Estimated Blood Loss: minimal Drains: DELICIA Implant(s) used?: No SOHA ELLIOTT Jul 27, 2016 14:17
[2016-07-27] MEDS ORDERED: Zolpidem 5mg tab ORAL PRN (14:30)
[2016-07-27] MEDS ORDERED: Lidocaine 1% 10mg/ml/Epi 0.005mg/ml 30ml vial INJ ONE (14:32)
[2016-07-27] MEDS ORDERED: Bacitracin 50000 Units Vial ONE (15:28)
--- NOTE | 2016-07-27 15:30 | Immediate Post-Op Evaluation ---
Immediate Post-Op Evalulation Immediate Post-Op Evalulation Procedure: Excision of bilateral groin and l axillary hydradenitis Date of Evaluation: Jul 27, 2016 Time of Evaluation: 15:56 IV Fluids: 1L Blood Products: 0 Estimated Blood Loss: min Urinary Output: 100 Blood Pressure Systolic: 141 Blood Pressure Diastolic: 86 Pulse Rate: 85 Respiratory Rate: 17 O2 Sat by Pulse Oximetry: 99 Temperature (Fahrenheit): 97.1 Pain Score (1-10): 0 Nausea: No Vomiting: No Complications 0 Patient Status: awake, reacts, patent, none Hydration Status: adequate Drug: Ancef 2g Given Within 1 Hr of Incision: Yes Time Given: 14:20 TAQUERIA ROMO M.D. Jul 27, 2016 15:29
[2016-07-27] MEDS ORDERED: Rate Change PCA 1 Each MISC PRN (16:30)
[2016-07-27] MEDS: PCA HYDROmorphone 1mg/ml 30 ML IV PRN ×2 (16:35→17:48)
--- NOTE | 2016-07-27 19:07 | Cardiology Report ---
APPROVED REPORT EKG Measurement Heart [id number] Normal sinus rhythm Normal ECG
[2016-07-27] MEDS: Famotidine 20 MG/ 2ML VIAL IVP SCH (20:46)
[2016-07-27] MEDS ORDERED: Heparin 5000 units/ml inj SUBQ SCH (21:00)
--- NOTE | 2016-07-27 21:27 | Operative Note - Dictated ---
DATE OF OPERATION: 07/27/2016 PREOPERATIVE DIAGNOSIS: Bilateral open groin wound and open right thigh wound. POSTOPERATIVE DIAGNOSIS: Bilateral open groin wound and open right thigh wound. PROCEDURES: 1. Preparation of left groin wound for flap closure. 2. Preparation of right groin wound for flap closure. 3. Complex closure of right thigh wound. 4. Flap readvancement for closure of left groin wound. 5. Flap readvancement for closure of right groin wound. SURGEON: Kelsey Bradshaw M.D. PIANO CASE MAKER: Maximus Hill M.D. ANESTHESIA: General. COMPLICATIONS: None. DRAINS: Included one size 15 DELICIA in each groin wound. EBL: 25 mL. DISPOSITION: Stable to the recovery room. INDICATIONS FOR SURGERY: This is a 46-year-old female, who is three days postoperative from an excisional debridement of bilateral groin tissue, who has been undergoing dressing changes with IV antibiotics and her wound is not ready for definitive wound closure with flap advancement. The patient understands the risks and benefits of surgery and agrees to proceed. DETAILS OF THE OPERATION: The patient was brought to the operating room and laid supine on the operating room table and then after induction of anesthesia, she was placed in the lithotomy position. Her bilateral groins and lower abdomen and thighs were prepped and draped in a sterile usual fashion. We first began by debriding both open groin wounds with removal of some nonviable tissue using the electrocautery. Once this was done, despite the previous flap advancements, it was noted that the tissue tension was still significant if the current wound closure was pursued with flap advancement. As such, the previously raised flaps had to be readvanced, this was first done on the left side by re-elevating the flap previously raised fasciocutaneous medial thigh flap in the same plane level. Once this was done, we turned our attention to the contralateral right groin and in a similar fashion, the medial thigh flap that was previously elevated had to be readvanced and re-elevated to allow for a tension-free repair. Once this was done, the wound was copiously irrigated with pulse lavage on both sides and the flap was readvanced first on the left using #0 and 2-0 Vicryl sutures and 2-0 Prolene was used to close the skin and in a similar fashion, the contralateral groin wound was closed using #0 and 2-0 Vicryl sutures and with 2-0 Prolene to re-advance the medial thigh flap on that side. With both groin wounds closed, the right thigh wound was debrided as well and was closed using a complex closure technique of #0 Vicryl sutures with 2-0 Prolene for the skin. This thus completed definitive wound closure of the patient's bilateral groin and thigh wounds. She tolerated the procedure well. There were no complications. Kelsey Bradshaw M.D. DR: ITZEL JOB#: [id number] CC:
[2016-07-27] MEDS ORDERED: ceFAZolin sod 1 GM in D5W 55 ML IVPB SCH (22:00)
[2016-07-28] MEDS: D5 1/2NS 1,000 ML IV SCH ×4 (03:07→16:27)
[2016-07-28] MEDS: ceFAZolin sod 1 GM in D5W 55 ML IVPB SCH ×3 (05:26→20:54)
[2016-07-28 07:11] LABS: BASOPHILS % (AUTO) 0.6 % (0.0-2.0); LYMPHOCYTES % (AUTO) 32.7 % (20.0-45.0); MEAN CORPUSCULAR HEMOGLOBIN 31.6 PG (27.0-31.0); MEAN CORPUSCULAR HGB CONC 36.6 G/DL (32.0-36.0); MEAN CORPUSCULAR VOLUME 86 FL (80-99); MEAN PLATELET VOLUME 6.9 FL (6.5-10.1); MONOCYTES % (AUTO) 7.2 % (1.0-10.0); NEUTROPHILS % (AUTO) 59.5 % (45.0-75.0); PLATELET COUNT 221 K/UL (150-450); RED BLOOD COUNT 3.96 M/UL (4.20-5.40); RED CELL DISTRIBUTION WIDTH 11.1 % (11.6-14.8); WHITE BLOOD COUNT 9.2 K/UL (4.8-10.8)
[2016-07-28] MEDS: PCA shift volume MISC SCH ×3 (07:24→23:00)
[2016-07-28 07:44] LABS: ANION GAP 10 (5-15); CALCIUM 8.8 mg/dL (8.6-10.2); CARBON DIOXIDE 27 mEQ/L (20-30); CHLORIDE 104 mEQ/L (98-107); CREATININE 0.7 mg/dL (0.5-0.9); GLOMERULAR FILTRATION RATE > 60 mL/min (>60); HEMOLYSIS 3; POTASSIUM 4.6 mEQ/L (3.4-4.9); SODIUM 141 mEQ/L (135-145)
[2016-07-28] MEDS: Famotidine 20 MG/ 2ML VIAL IVP SCH ×2 (08:04→20:53)
[2016-07-28] MEDS: Heparin 5000 units/ml inj SUBQ SCH ×2 (08:12→20:55)
--- NOTE | 2016-07-28 10:30 | 48 Hour Post Anesthesia Eval ---
Post Anesthesia Evaluation Procedure: Excision of bilateral groin and l axillary hydradenitis Date of Evaluation: Jul 28, 2016 Time of Evaluation: 11:50 Blood Pressure Systolic: 111 0: 66 Pulse Rate: 93 Respiratory Rate: 18 Temperature (Fahrenheit): 97.2 O2 Sat by Pulse Oximetry: 94 Airway: patent Nausea: No Vomiting: No Pain Intensity: 2 If pain is > 6 Comment: Doing well with SUPERVISOR SAMPLE Hydration Status: adequate Cardiopulmonary Status: Stable Mental Status/LOC: patient returned to baseline Follow-up Care/Observations: As per surgery Post-Anesthesia Complications: No anesthetic complication Follow-up care needed: N/A JENIFFER YU M.D. Jul 28, 2016 10:30
--- NOTE | 2016-07-28 11:01 | General Progress Note ---
Progress Note Progress Note Pt seen and examined. POD# 4 and #1 doing well. Left axillary wound is looking good. Groin dressings in place. Will take down those dressings in 2 days. Soha Bradshaw. SOHA BROWNLEE Jul 28, 2016 11:01
--- NOTE | 2016-07-28 11:21 | GI Progress Note ---
Assessment/Plan Problems: (1) Abscess ICD Codes: L02.91 - Cutaneous abscess, unspecified SNOMED: 980814240 (2) Persistent vomiting ICD Codes: R11.10 - Vomiting, unspecified SNOMED: 020083310 (3) Hydradenitis ICD Codes: L73.2 - Hidradenitis suppurativa SNOMED: 01958009 Status: stable Status Narrative Discussed with Dr. Lanza. Assessment/Plan symptomatic treatment at this time Phenergan or compazine prn, consider low dose reglan if patient continues to have persistent vomiting lipase negative H2 abx fu labs Subjective Subjective denies any N/V Objective Last 24 Hour Vital Signs Date Time Temp Pulse Resp B/P Pulse Ox O2 Delivery O2 Flow Rate FiO2 07/28/16 10:30 93 18 94 07/28/16 08:00 18 07/28/16 04:00 18 07/28/16 00:00 18 07/27/16 20:00 18 07/27/16 20:00 97.2 93 19 111/66 94 Room Air 07/27/16 18:00 99.7 71 16 115/72 94 Room Air 07/27/16 17:30 18 07/27/16 17:20 97.0 61 15 120/79 96 Nasal Cannula 3.0 07/27/16 17:15 62 14 118/78 96 Nasal Cannula 3.0 07/27/16 17:15 14 07/27/16 17:05 97.0 07/27/16 17:00 16 07/27/16 17:00 64 16 126/79 98 Nasal Cannula 3.0 07/27/16 16:45 63 18 123/78 97 Nasal Cannula 3.0 07/27/16 16:40 62 15 123/80 97 Nasal Cannula 3.0 07/27/16 16:40 15 07/27/16 16:35 15 07/27/16 16:30 66 15 134/87 98 Nasal Cannula 3.0 07/27/16 16:15 71 14 138/87 100 Nasal Cannula 3.0 07/27/16 16:00 70 16 139/83 99 Simple Mask 8.0 07/27/16 15:55 78 20 139/83 99 Simple Mask 8.0 07/27/16 15:54 85 17 99 07/27/16 15:50 97.1 77 20 141/86 97 Simple Mask 8.0 07/27/16 12:06 98.2 62 19 119/62 100 Room Air 07/27/16 12:00 18 Intake and Output 07/27/16 07/28/16 19:00 07:00 Intake Total 1100 ml 975 ml Output Total 1450 ml 2465 ml Balance -350 ml -1490 ml Intake Oral 620 ml IV Total 1100 ml 355 ml Output Urine Total 1450 ml 2450 ml Drainage Total 15 ml Laboratory Tests Test 07/28/16 06:35 White Blood Count 9.2 K/UL (4.8-10.8) Red Blood Count 3.96 M/UL (4.20-5.40) L Hemoglobin 12.5 G/DL (12.0-16.0) Hematocrit 34.2 % (37.0-47.0) L Mean Corpuscular Volume 86 FL (80-99) Mean Corpuscular Hemoglobin 31.6 PG (27.0-31.0) H Mean Corpuscular Hemoglobin Concent 36.6 G/DL (32.0-36.0) H Red Cell Distribution Width 11.1 % (11.6-14.8) L Platelet Count 221 K/UL (150-450) Mean Platelet Volume 6.9 FL (6.5-10.1) Neutrophils (%) (Auto) 59.5 % (45.0-75.0) Lymphocytes (%) (Auto) 32.7 % (20.0-45.0) Monocytes (%) (Auto) 7.2 % (1.0-10.0) Eosinophils (%) (Auto) 0.0 % (0.0-3.0) Basophils (%) (Auto) 0.6 % (0.0-2.0) Sodium Level 141 mEQ/L (135-145) Potassium Level 4.6 mEQ/L (3.4-4.9) Chloride Level 104 mEQ/L (98-107) Carbon Dioxide Level 27 mEQ/L (20-30) Anion Gap 10 (5-15) Blood Urea Nitrogen 5 mg/dL (7-23) L Creatinine 0.7 mg/dL (0.5-0.9) Estimat Glomerular Filtration Rate > 60 mL/min (>60) Glucose Level 130 mg/dL (74-106) H Calcium Level 8.8 mg/dL (8.6-10.2) Height (Feet): 5 Height (Inches): 8.00 Weight (Pounds): 190 General Appearance: no apparent distress, alert Cardiovascular: normal rate Respiratory/Chest: normal breath sounds, no respiratory distress Abdominal Exam: normal bowel sounds, non tender, soft Caron Long N.P. Jul 28, 2016 11:21
[2016-07-28 12:00] VITALS: BP 106/68
--- NOTE | 2016-07-28 14:12 | General Progress Note ---
Assessment/Plan Problem List: (1) Abscess ICD Codes: L02.91 - Cutaneous abscess, unspecified SNOMED: 383573744 (2) Hydradenitis ICD Codes: L73.2 - Hidradenitis suppurativa SNOMED: 41199545 Assessment/Plan - Admit to inpt med/surg - Pain control; start norco since pt having n/v with dilaudid - zofran, compazine and phenargan prn n/v--now controlled - Blood cx - IV abx - incresed rate of IVF - Supp care/wound care -c/s surgery, Dr. Bradshaw; pt s/p b/l groin and L axilla debridement 07/24/16 -s/p wound closure 07/27/16 Dispo: dc home wednesday Subjective Date patient seen: Jul 28, 2016 Time patient seen: 14:11 Allergies: Coded Allergies: No Known Allergies (Unverified , 07/23/16) Subjective n/v improved; tolerating diet and pain meds Objective Last 24 Hour Vital Signs Date Time Temp Pulse Resp B/P Pulse Ox O2 Delivery O2 Flow Rate FiO2 07/28/16 12:00 18 07/28/16 12:00 97.6 60 18 106/68 98 Room Air 07/28/16 10:30 93 18 94 07/28/16 08:00 18 07/28/16 04:00 18 07/28/16 00:00 18 07/27/16 20:00 18 07/27/16 20:00 97.2 93 19 111/66 94 Room Air 07/27/16 18:00 99.7 71 16 115/72 94 Room Air 07/27/16 17:30 18 07/27/16 17:20 97.0 61 15 120/79 96 Nasal Cannula 3.0 07/27/16 17:15 62 14 118/78 96 Nasal Cannula 3.0 07/27/16 17:15 14 07/27/16 17:05 97.0 07/27/16 17:00 16 07/27/16 17:00 64 16 126/79 98 Nasal Cannula 3.0 07/27/16 16:45 63 18 123/78 97 Nasal Cannula 3.0 07/27/16 16:40 62 15 123/80 97 Nasal Cannula 3.0 07/27/16 16:40 15 07/27/16 16:35 15 07/27/16 16:30 66 15 134/87 98 Nasal Cannula 3.0 07/27/16 16:15 71 14 138/87 100 Nasal Cannula 3.0 07/27/16 16:00 70 16 139/83 99 Simple Mask 8.0 07/27/16 15:55 78 20 139/83 99 Simple Mask 8.0 07/27/16 15:54 85 17 99 07/27/16 15:50 97.1 77 20 141/86 97 Simple Mask 8.0 Intake and Output 07/27/16 07/28/16 19:00 07:00 Intake Total 1100 ml 975 ml Output Total 1450 ml 2465 ml Balance -350 ml -1490 ml Intake Oral 620 ml IV Total 1100 ml 355 ml Output Urine Total 1450 ml 2450 ml Drainage Total 15 ml Laboratory Tests 07/28/16 06:35: White Blood Count 9.2, Red Blood Count 3.96L, Hemoglobin 12.5, Hematocrit 34.2L , Mean Corpuscular Volume 86, Mean Corpuscular Hemoglobin 31.6H, Mean Corpuscular Hemoglobin Concent 36.6H, Red Cell Distribution Width 11.1L, Platelet Count 221, Mean Platelet Volume 6.9, Neutrophils (%) (Auto) 59.5, Lymphocytes (%) (Auto) 32.7, Monocytes (%) (Auto) 7.2, Eosinophils (%) (Auto) 0.0, Basophils (%) (Auto) 0.6, Sodium Level 141, Potassium Level 4.6, Chloride Level 104, Carbon Dioxide Level 27, Anion Gap 10, Blood Urea Nitrogen 5L, Creatinine 0.7, Estimat Glomerular Filtration Rate > 60, Glucose Level 130H, Calcium Level 8.8 Height (Feet): 5 Height (Inches): 8.00 Weight (Pounds): 190 Objective General Appearance: well appearing, no apparent distress Head: normocephalic Eyes: bilateral eye PERRL, bilateral eye normal inspection ENT: moist mucus membranes Neck: supple Respiratory: lungs clear, normal breath sounds Cardiovascular #1: regular rate, rhythm Cardiovascular #2: 2+ radial (R) Gastrointestinal: normal inspection, normal bowel sounds, non tender, no mass, non-distended Musculoskeletal: back normal, gait/station normal, normal range of motion Neurologic: alert, oriented x3, grossly normal Psychiatric: mood/affect normal Skin: warm/dry, other - Lesions L armpit and b/L groin - incision c/d/i Raf Vargas M.D. Jul 28, 2016 14:12
[2016-07-28 16:00] VITALS: BP 103/64
[2016-07-28] MEDS: PCA HYDROmorphone 1mg/ml 30 ML IV PRN (16:29)
[2016-07-28 20:00] VITALS: BP 111/67
[2016-07-28] MEDS: DiphenhydrAMINE 50mg/ml Inj IVP PRN (22:16)
[2016-07-29] VITALS (8 sets, daily range): BP systolic 95–115; BP diastolic 48–74
[2016-07-29] MEDS: ceFAZolin sod 1 GM in D5W 55 ML IVPB SCH ×3 (05:00→21:22)
[2016-07-29] MEDS: D5 1/2NS 1,000 ML IV SCH ×2 (06:00→11:16)
[2016-07-29] MEDS: PCA shift volume MISC SCH ×3 (07:00→23:00)
[2016-07-29 07:43] LABS: BASOPHILS % (AUTO) 1.3 % (0.0-2.0); EOSINOPHILS % (AUTO) 1.4 % (0.0-3.0); LYMPHOCYTES % (AUTO) 49.1 % (20.0-45.0); MEAN CORPUSCULAR HEMOGLOBIN 31.3 PG (27.0-31.0); MEAN CORPUSCULAR HGB CONC 35.7 G/DL (32.0-36.0); MEAN CORPUSCULAR VOLUME 88 FL (80-99); MEAN PLATELET VOLUME 6.9 FL (6.5-10.1); MONOCYTES % (AUTO) 6.4 % (1.0-10.0); NEUTROPHILS % (AUTO) 41.7 % (45.0-75.0); PLATELET COUNT 231 K/UL (150-450); RED BLOOD COUNT 3.78 M/UL (4.20-5.40); RED CELL DISTRIBUTION WIDTH 11.2 % (11.6-14.8); WHITE BLOOD COUNT 9.8 K/UL (4.8-10.8)
[2016-07-29 07:59] LABS: ANION GAP 11 (5-15); CALCIUM 8.5 mg/dL (8.6-10.2); CARBON DIOXIDE 27 mEQ/L (20-30); CHLORIDE 100 mEQ/L (98-107); CREATININE 0.9 mg/dL (0.5-0.9); GLOMERULAR FILTRATION RATE > 60 mL/min (>60); HEMOLYSIS 1; POTASSIUM 4.1 mEQ/L (3.4-4.9); SODIUM 138 mEQ/L (135-145)
[2016-07-29] MEDS: Famotidine 20 MG/ 2ML VIAL IVP SCH ×2 (08:11→21:22)
[2016-07-29] MEDS: Heparin 5000 units/ml inj SUBQ SCH ×2 (08:18→21:23)
--- NOTE | 2016-07-29 10:50 | GI Progress Note ---
Assessment/Plan Problems: (1) Abscess ICD Codes: L02.91 - Cutaneous abscess, unspecified SNOMED: 474145063 (2) Persistent vomiting ICD Codes: R11.10 - Vomiting, unspecified SNOMED: 498817633 (3) Hydradenitis ICD Codes: L73.2 - Hidradenitis suppurativa SNOMED: 36078750 Status: stable Status Narrative Discussed with Dr. Lanza. Assessment/Plan ok for DC per GI standpoint symptomatic treatment at this time Phenergan or compazine prn, consider low dose reglan if patient continues to have persistent vomiting lipase negative H2 abx fu labs Subjective Subjective denies any N/V Objective Last 24 Hour Vital Signs Date Time Temp Pulse Resp B/P Pulse Ox O2 Delivery O2 Flow Rate FiO2 07/29/16 08:00 98.8 75 20 111/64 92 Room Air 07/29/16 08:00 19 07/29/16 04:00 19 07/29/16 00:00 18 07/29/16 00:00 98.1 73 18 115/74 92 Room Air 07/28/16 20:00 97.7 70 18 111/67 93 Room Air 07/28/16 20:00 18 07/28/16 16:59 97.6 07/28/16 16:41 18 07/28/16 16:00 97.7 65 20 103/64 97 Room Air 07/28/16 16:00 18 07/28/16 12:00 18 07/28/16 12:00 97.6 60 18 106/68 98 Room Air Intake and Output 07/28/16 07/29/16 19:00 07:00 Intake Total 1200 ml 1342.5 ml Output Total 1250 ml 1954 ml Balance -50 ml -611.5 ml Intake Oral 1200 ml 800 ml IV Total 542.5 ml Output Urine Total 1250 ml 1900 ml Drainage Total 54 ml Laboratory Tests Test 07/29/16 06:05 White Blood Count 9.8 K/UL (4.8-10.8) Red Blood Count 3.78 M/UL (4.20-5.40) L Hemoglobin 11.8 G/DL (12.0-16.0) L Hematocrit 33.1 % (37.0-47.0) L Mean Corpuscular Volume 88 FL (80-99) Mean Corpuscular Hemoglobin 31.3 PG (27.0-31.0) H Mean Corpuscular Hemoglobin Concent 35.7 G/DL (32.0-36.0) Red Cell Distribution Width 11.2 % (11.6-14.8) L Platelet Count 231 K/UL (150-450) Mean Platelet Volume 6.9 FL (6.5-10.1) Neutrophils (%) (Auto) 41.7 % (45.0-75.0) L Lymphocytes (%) (Auto) 49.1 % (20.0-45.0) H Monocytes (%) (Auto) 6.4 % (1.0-10.0) Eosinophils (%) (Auto) 1.4 % (0.0-3.0) Basophils (%) (Auto) 1.3 % (0.0-2.0) Sodium Level 138 mEQ/L (135-145) Potassium Level 4.1 mEQ/L (3.4-4.9) Chloride Level 100 mEQ/L (98-107) Carbon Dioxide Level 27 mEQ/L (20-30) Anion Gap 11 (5-15) Blood Urea Nitrogen 8 mg/dL (7-23) Creatinine 0.9 mg/dL (0.5-0.9) Estimat Glomerular Filtration Rate > 60 mL/min (>60) Glucose Level 90 mg/dL (74-106) Calcium Level 8.5 mg/dL (8.6-10.2) L Height (Feet): 5 Height (Inches): 8.00 Weight (Pounds): 190 General Appearance: no apparent distress, alert Cardiovascular: normal rate Respiratory/Chest: normal breath sounds Abdominal Exam: normal bowel sounds, non tender, soft Caron Long N.Harmony Jul 29, 2016 10:50
--- NOTE | 2016-07-29 15:44 | General Progress Note ---
Assessment/Plan Problem List: (1) Abscess ICD Codes: L02.91 - Cutaneous abscess, unspecified SNOMED: 275838711 (2) Hydradenitis ICD Codes: L73.2 - Hidradenitis suppurativa SNOMED: 09070286 Assessment/Plan - Admit to inpt med/surg - Pain control; start norco since pt having n/v with dilaudid - zofran, compazine and phenargan prn n/v--now controlled - Blood cx - IV abx - decreae rate of IVF - Supp care/wound care -c/s surgery, Dr. Bradshaw; pt s/p b/l groin and L axilla debridement 07/24/16 -s/p wound closure 07/27/16 Dispo: dc home wednesday Subjective Date patient seen: Jul 29, 2016 Time patient seen: 15:44 Allergies: Coded Allergies: No Known Allergies (Unverified , 07/23/16) Subjective n/v resolved; tolerating diet and pain meds Objective Last 24 Hour Vital Signs Date Time Temp Pulse Resp B/P Pulse Ox O2 Delivery O2 Flow Rate FiO2 07/29/16 12:00 19 07/29/16 08:00 98.8 75 20 111/64 92 Room Air 07/29/16 08:00 19 07/29/16 04:00 19 07/29/16 00:00 18 07/29/16 00:00 98.1 73 18 115/74 92 Room Air 07/28/16 20:00 97.7 70 18 111/67 93 Room Air 07/28/16 20:00 18 07/28/16 16:59 97.6 07/28/16 16:41 18 07/28/16 16:00 97.7 65 20 103/64 97 Room Air 07/28/16 16:00 18 Intake and Output 07/28/16 07/29/16 19:00 07:00 Intake Total 1200 ml 1342.5 ml Output Total 1250 ml 1954 ml Balance -50 ml -611.5 ml Intake Oral 1200 ml 800 ml IV Total 542.5 ml Output Urine Total 1250 ml 1900 ml Drainage Total 54 ml Laboratory Tests 07/29/16 06:05: White Blood Count 9.8, Red Blood Count 3.78L, Hemoglobin 11.8L, Hematocrit 33.1L , Mean Corpuscular Volume 88, Mean Corpuscular Hemoglobin 31.3H, Mean Corpuscular Hemoglobin Concent 35.7, Red Cell Distribution Width 11.2L, Platelet Count 231, Mean Platelet Volume 6.9, Neutrophils (%) (Auto) 41.7L, Lymphocytes (%) (Auto) 49.1H, Monocytes (%) (Auto) 6.4, Eosinophils (%) (Auto) 1.4, Basophils (%) (Auto) 1.3, Sodium Level 138, Potassium Level 4.1, Chloride Level 100, Carbon Dioxide Level 27, Anion Gap 11, Blood Urea Nitrogen 8, Creatinine 0.9, Estimat Glomerular Filtration Rate > 60, Glucose Level 90, Calcium Level 8.5L Height (Feet): 5 Height (Inches): 8.00 Weight (Pounds): 190 Objective General Appearance: well appearing, no apparent distress Head: normocephalic Eyes: bilateral eye PERRL, bilateral eye normal inspection ENT: moist mucus membranes Neck: supple Respiratory: lungs clear, normal breath sounds Cardiovascular #1: regular rate, rhythm Cardiovascular #2: 2+ radial (R) Gastrointestinal: normal inspection, normal bowel sounds, non tender, no mass, non-distended Musculoskeletal: back normal, gait/station normal, normal range of motion Neurologic: alert, oriented x3, grossly normal Psychiatric: mood/affect normal Skin: warm/dry, other - Lesions L armpit and b/L groin - incision c/d/i Raf Vargas M.D. Jul 29, 2016 15:44
[2016-07-29] MEDS: DiphenhydrAMINE 50mg/ml Inj IVP PRN (16:44)
[2016-07-29] MEDS ORDERED: Rate Change PCA 1 Each MISC PRN (18:00)
[2016-07-29] MEDS: PCA HYDROmorphone 1mg/ml 30 ML IV PRN (18:45)
[2016-07-30] MEDS: D5 1/2NS 1,000 ML IV SCH (02:21)
[2016-07-30 04:00] VITALS: BP 128/72
[2016-07-30] MEDS: ceFAZolin sod 1 GM in D5W 55 ML IVPB SCH ×3 (04:14→20:00)
[2016-07-30] MEDS: PCA shift volume MISC SCH ×3 (07:05→23:08)
[2016-07-30 08:36] VITALS: BP 112/61
[2016-07-30] MEDS: Famotidine 20 MG/ 2ML VIAL IVP SCH ×2 (09:13→20:00)
[2016-07-30] MEDS: Heparin 5000 units/ml inj SUBQ SCH ×2 (09:17→20:02)
--- NOTE | 2016-07-30 10:26 | General Progress Note ---
Assessment/Plan Problem List: (1) Abscess ICD Codes: L02.91 - Cutaneous abscess, unspecified SNOMED: 407046217 (2) Hydradenitis ICD Codes: L73.2 - Hidradenitis suppurativa SNOMED: 17726817 Assessment/Plan - Admit to inpt med/surg - Pain control; start norco since pt having n/v with dilaudid - zofran, compazine and phenargan prn n/v--now controlled - Blood cx - IV abx - decreae rate of IVF - Supp care/wound care -c/s surgery, Dr. Bradshaw; pt s/p b/l groin and L axilla debridement 07/24/16 -s/p wound closure 07/27/16 Dispo: dc home wednesday Subjective Date patient seen: Jul 30, 2016 Time patient seen: 10:25 Allergies: Coded Allergies: No Known Allergies (Unverified , 07/23/16) Subjective n/v resolved; tolerating diet and pain meds Objective Last 24 Hour Vital Signs Date Time Temp Pulse Resp B/P Pulse Ox O2 Delivery O2 Flow Rate FiO2 07/30/16 08:36 98.1 82 20 112/61 93 Room Air 07/30/16 04:00 18 07/30/16 04:00 98.2 66 18 128/72 95 Room Air 07/30/16 00:00 18 07/29/16 20:00 98.6 72 18 105/65 91 Room Air 07/29/16 20:00 18 07/29/16 19:15 98.6 07/29/16 18:45 98.2 69 18 101/69 97 Room Air 07/29/16 18:45 18 07/29/16 18:30 98.1 65 18 98/65 97 Room Air 07/29/16 18:15 98.2 63 18 95/69 95 Room Air 07/29/16 18:00 98.2 62 18 97/65 96 Room Air 07/29/16 16:17 97.9 67 18 95/48 91 Room Air 07/29/16 16:00 18 07/29/16 12:00 19 Intake and Output 07/29/16 07/30/16 19:00 07:00 Intake Total 1445 ml Output Total 1650 ml 3470 ml Balance -1650 ml -2025 ml Intake Oral 1040 ml IV Total 405 ml Output Urine Total 1650 ml 3450 ml Drainage Total 20 ml Height (Feet): 5 Height (Inches): 8.00 Weight (Pounds): 190 Objective General Appearance: well appearing, no apparent distress Head: normocephalic Eyes: bilateral eye PERRL, bilateral eye normal inspection ENT: moist mucus membranes Neck: supple Respiratory: lungs clear, normal breath sounds Cardiovascular #1: regular rate, rhythm Cardiovascular #2: 2+ radial (R) Gastrointestinal: normal inspection, normal bowel sounds, non tender, no mass, non-distended Musculoskeletal: back normal, gait/station normal, normal range of motion Neurologic: alert, oriented x3, grossly normal Psychiatric: mood/affect normal Skin: warm/dry, other - Lesions L armpit and b/L groin - incision c/d/i Raf Vargas M.D. Jul 30, 2016 10:26
--- NOTE | 2016-07-30 11:28 | GI Progress Note ---
Assessment/Plan Problems: (1) Abscess ICD Codes: L02.91 - Cutaneous abscess, unspecified SNOMED: 321042255 (2) Persistent vomiting ICD Codes: R11.10 - Vomiting, unspecified SNOMED: 743489066 (3) Hydradenitis ICD Codes: L73.2 - Hidradenitis suppurativa SNOMED: 96101787 Status: stable Status Narrative Discussed with Dr. Lanza. Assessment/Plan ok for DC per GI standpoint symptomatic treatment at this time Phenergan or compazine prn, consider low dose reglan if patient continues to have persistent vomiting lipase negative H2 abx fu labs Subjective Gastrointestinal/Abdominal: Reports: no symptoms Subjective denies any N/V Objective Last 24 Hour Vital Signs Date Time Temp Pulse Resp B/P Pulse Ox O2 Delivery O2 Flow Rate FiO2 07/30/16 08:36 98.1 82 20 112/61 93 Room Air 07/30/16 04:00 18 07/30/16 04:00 98.2 66 18 128/72 95 Room Air 07/30/16 00:00 18 07/29/16 20:00 98.6 72 18 105/65 91 Room Air 07/29/16 20:00 18 07/29/16 19:15 98.6 07/29/16 18:45 98.2 69 18 101/69 97 Room Air 07/29/16 18:45 18 07/29/16 18:30 98.1 65 18 98/65 97 Room Air 07/29/16 18:15 98.2 63 18 95/69 95 Room Air 07/29/16 18:00 98.2 62 18 97/65 96 Room Air 07/29/16 16:17 97.9 67 18 95/48 91 Room Air 07/29/16 16:00 18 07/29/16 12:00 19 Intake and Output 07/29/16 07/30/16 19:00 07:00 Intake Total 1445 ml Output Total 1650 ml 3470 ml Balance -1650 ml -2025 ml Intake Oral 1040 ml IV Total 405 ml Output Urine Total 1650 ml 3450 ml Drainage Total 20 ml Height (Feet): 5 Height (Inches): 8.00 Weight (Pounds): 190 General Appearance: no apparent distress, alert Cardiovascular: normal rate Respiratory/Chest: normal breath sounds, no respiratory distress Abdominal Exam: normal bowel sounds, non tender, soft Caron Long N.P. Jul 30, 2016 11:28
[2016-07-30 11:58] VITALS: BP 102/64
[2016-07-30] MEDS: DiphenhydrAMINE 50mg/ml Inj IVP PRN (15:18)
[2016-07-30 15:57] VITALS: BP 123/51
[2016-07-30 20:02] VITALS: BP 112/77
[2016-07-30] MEDS: PCA HYDROmorphone 1mg/ml 30 ML IV PRN (23:31)
[2016-07-31] VITALS: BP 116/67
[2016-07-31] MEDS: D5 1/2NS 1,000 ML IV SCH ×2 (01:43→21:11)
[2016-07-31] MEDS: ceFAZolin sod 1 GM in D5W 55 ML IVPB SCH ×3 (04:36→21:10)
[2016-07-31] MEDS: PCA shift volume MISC SCH (07:16)
[2016-07-31] MEDS: Heparin 5000 units/ml inj SUBQ SCH ×2 (09:30→21:00)
[2016-07-31] MEDS: Famotidine 20 MG/ 2ML VIAL IVP SCH ×2 (09:30→21:10)
--- NOTE | 2016-07-31 10:13 | General Progress Note ---
Assessment/Plan Problem List: (1) Abscess ICD Codes: L02.91 - Cutaneous abscess, unspecified SNOMED: 469690806 (2) Hydradenitis ICD Codes: L73.2 - Hidradenitis suppurativa SNOMED: 60987466 Assessment/Plan - Admit to inpt med/surg - Pain control; start norco since pt having n/v with dilaudid - zofran, compazine and phenargan prn n/v--now controlled - Blood cx - IV abx - decreased rate of IVF - Supp care/wound care -c/s surgery, Dr. Bradshaw; pt s/p b/l groin and L axilla debridement 07/24/16 -s/p wound closure 07/27/16 Dispo: dc home tomorrow Subjective Date patient seen: Jul 31, 2016 Time patient seen: 10:12 Allergies: Coded Allergies: No Known Allergies (Unverified , 07/23/16) Subjective n/v resolved; tolerating diet and pain meds Objective Last 24 Hour Vital Signs Date Time Temp Pulse Resp B/P Pulse Ox O2 Delivery O2 Flow Rate FiO2 07/31/16 09:02 17 07/31/16 08:00 17 07/31/16 04:00 16 07/31/16 00:00 98.2 66 18 116/67 94 Room Air 07/31/16 00:00 16 07/30/16 23:35 18 07/30/16 20:02 98.4 72 18 112/77 92 Room Air 07/30/16 20:00 18 07/30/16 16:00 18 07/30/16 15:57 97.9 59 19 123/51 93 Room Air 07/30/16 12:00 18 07/30/16 11:58 98.2 66 20 102/64 94 Room Air 07/30/16 10:30 99.2 Intake and Output 07/30/16 07/31/16 19:00 07:00 Intake Total 1330 ml 1870 ml Output Total 2700 ml 15 ml Balance -1370 ml 1855 ml Intake Oral 720 ml 1160 ml IV Total 610 ml 710 ml Output Urine Total 2700 ml Drainage Total 15 ml # Voids 6 Height (Feet): 5 Height (Inches): 8.00 Weight (Pounds): 190 Objective General Appearance: well appearing, no apparent distress Head: normocephalic Eyes: bilateral eye PERRL, bilateral eye normal inspection ENT: moist mucus membranes Neck: supple Respiratory: lungs clear, normal breath sounds Cardiovascular #1: regular rate, rhythm Cardiovascular #2: 2+ radial (R) Gastrointestinal: normal inspection, normal bowel sounds, non tender, no mass, non-distended Musculoskeletal: back normal, gait/station normal, normal range of motion Neurologic: alert, oriented x3, grossly normal Psychiatric: mood/affect normal Skin: warm/dry, other - Lesions L armpit and b/L groin - incision c/d/i Raf Vargas M.D. Jul 31, 2016 10:13
--- NOTE | 2016-07-31 11:00 | GI Progress Note ---
Assessment/Plan Problems: (1) Abscess ICD Codes: L02.91 - Cutaneous abscess, unspecified SNOMED: 667448725 (2) Persistent vomiting ICD Codes: R11.10 - Vomiting, unspecified SNOMED: 062577927 (3) Hydradenitis ICD Codes: L73.2 - Hidradenitis suppurativa SNOMED: 05908210 Status: stable Status Narrative Discussed with Dr. Lanza. Assessment/Plan ok for DC per GI standpoint symptomatic treatment at this time Phenergan or compazine prn, consider low dose reglan if patient continues to have persistent vomiting lipase negative H2 abx fu labs Subjective Gastrointestinal/Abdominal: Reports: no symptoms Subjective denies any N/V Objective Last 24 Hour Vital Signs Date Time Temp Pulse Resp B/P Pulse Ox O2 Delivery O2 Flow Rate FiO2 07/31/16 09:02 17 07/31/16 08:00 17 07/31/16 04:00 16 07/31/16 00:00 98.2 66 18 116/67 94 Room Air 07/31/16 00:00 16 07/30/16 23:35 18 07/30/16 20:02 98.4 72 18 112/77 92 Room Air 07/30/16 20:00 18 07/30/16 16:00 18 07/30/16 15:57 97.9 59 19 123/51 93 Room Air 07/30/16 12:00 18 07/30/16 11:58 98.2 66 20 102/64 94 Room Air Intake and Output 07/30/16 07/31/16 19:00 07:00 Intake Total 1330 ml 1870 ml Output Total 2700 ml 15 ml Balance -1370 ml 1855 ml Intake Oral 720 ml 1160 ml IV Total 610 ml 710 ml Output Urine Total 2700 ml Drainage Total 15 ml # Voids 6 Height (Feet): 5 Height (Inches): 8.00 Weight (Pounds): 190 General Appearance: no apparent distress, alert Cardiovascular: normal rate Respiratory/Chest: normal breath sounds, no respiratory distress Abdominal Exam: normal bowel sounds, non tender, soft Caron Long N.Harmony Jul 31, 2016 11:00
[2016-07-31] MEDS ORDERED: traMADol 50mg tab ORAL PRN (11:30)
[2016-07-31 12:00] VITALS: BP 116/70
[2016-07-31] MEDS ORDERED: HYDROmorphone 1mg/ml Carpuject IVP ONE (13:30)
[2016-07-31 16:00] VITALS: BP 111/68
[2016-07-31] MEDS ORDERED: Hydrocortisone 1% Cr 15gm TOPIC PRN (16:00)
[2016-07-31 20:00] VITALS: BP 130/60
[2016-08-01] VITALS: BP 96/50
[2016-08-01 04:00] VITALS: BP 100/64
[2016-08-01] MEDS: ceFAZolin sod 1 GM in D5W 55 ML IVPB SCH (05:08)
[2016-08-01] MEDS: Famotidine 20 MG/ 2ML VIAL IVP SCH (07:53)
[2016-08-01] MEDS: Heparin 5000 units/ml inj SUBQ SCH (07:59)
[2016-08-01 08:00] VITALS: BP 108/71
--- NOTE | 2016-08-01 10:20 | Discharge Summary ---
Discharge Summary Hospital Course Date of Admission Jul 23, 2016 at 16:29 Date of Discharge 08/01/16 Admitting Diagnosis hydradenitis HPI Pam Kauffman is a 46 year old female who was admitted on Jul 23, 2016 at 16: 29 for Groin Infection, Hydradenitis Hospital Course - Admit to inpt med/surg - Pain control; percocet and dilaudid - zofran, compazine and phenargan for n/v 2/2 pain meds resolved - Blood cx - IV abx - IVF - Supp care/wound care -c/s surgery, Dr. Bradshaw; pt s/p b/l groin and L axilla debridement 07/24/16 -s/p wound closure 07/27/16 Discharge Condition Upon Discharge: stable Discharge Disposition Patient was discharged to home Discharge Diagnoses: (1) Hydradenitis (2) Persistent vomiting (3) Abscess Raf Vargas M.D. Aug 01, 2016 10:20
[2016-08-01] MEDS ORDERED: PERCOCET 10-321 EACH ORAL (10:50)
[2016-08-01] MEDS ORDERED: CEPHALEXIN500 MG ORAL (10:51)
[2016-08-01 12:13] VITALS: BP 110/65
[2016-08-01] MEDS ORDERED: NS Irrig 1000ml ONE (13:21)
[2016-08-01] MEDS ORDERED: D5 1/2NS 1000ml IV ONE (13:21)
== END 2016-08-01 13:22 | disposition home or self-care (01) | DRG 574 ==
LOC: EMR 15:05 → 3E 16:29 → EDBEDREQ 17:38
PROC: 0JB80ZZ Excision of Abdomen Subcutaneous Tissue and Fascia, Open Approach (ICD-10-PCS; principal; 2016-07-24 12:30)
PROC: 0JBL0ZZ Excision of Right Upper Leg Subcutaneous Tissue and Fascia, Open Approach (ICD-10-PCS; principal; 2016-07-24 12:30)
PROC: 0H8HXZZ Division of Right Upper Leg Skin, External Approach (ICD-10-PCS; principal; 2016-07-24 12:30)
PROC: 0H87XZZ Division of Abdomen Skin, External Approach (ICD-10-PCS; principal; 2016-07-24 12:30)
PROC: 0H85XZZ Division of Chest Skin, External Approach (ICD-10-PCS; principal; 2016-07-24 12:30)
PROC: 0H8CXZZ Division of Left Upper Arm Skin, External Approach (ICD-10-PCS; principal; 2016-07-24 12:30)
PROC: 0JBF0ZZ Excision of Left Upper Arm Subcutaneous Tissue and Fascia, Open Approach (ICD-10-PCS; principal; 2016-07-24 12:30)
PROC: 0JQL0ZZ Repair Right Upper Leg Subcutaneous Tissue and Fascia, Open Approach (ICD-10-PCS; 2016-07-27)
PROC: 0JX80ZZ Transfer Abdomen Subcutaneous Tissue and Fascia, Open Approach (ICD-10-PCS; 2016-07-27)
DX: L02.214 Cutaneous abscess of groin (principal); L02.412 Cutaneous abscess of left axilla; L02.415 Cutaneous abscess of right lower limb; L73.2 Hidradenitis suppurativa; K44.9 Diaphragmatic hernia without obstruction or gangrene; R11.10 Vomiting, unspecified
CPT/HCPCS: 36415; 71010; 80048; 80053; 81003; 81025; 82550; 82962; 83690; 85025; 85610; 85730; 93005; 94003; 94150; J2250; J2405; J2765